=== PATIENT | female | born 1940 | race Caucasian/White ===

== ENCOUNTER 2020-02-04 14:57 | Inpatient (IN) | payer MEDICARE ==
[~2020-02-04] VITALS: Ht 160 cm; Wt 49.0 kg
[~2020-02-04 14:57] MED LIST: ADVIL200 MG PO; ASPIRIN81 MG PO; DULCOLAX10 MG/SUPP RC; LOVENOX40 MG/0.4 SQ; MIRALAX17 GM PO; OGEN1.5 MG PO; PLAVIX75 MG PO; PRAVACHOL20 MG PO; SALINE FLUSH10 ML IV; SENOKOT-S TABLE1 TAB PO; VITAMIN B-121000 MC3 PO; VITAMIN D31000 UNIT PO; XALATAN 0.0052.5 ML EACH EYE
[2020-02-04] MEDS ORDERED: LISINOPRIL2.5 MG PO (15:08)
[2020-02-04] MEDS ORDERED: PLAVIX75 MG PO (15:08)
[2020-02-04] MEDS ORDERED: CELEXA20 MG PO (15:09)
[2020-02-04] MEDS ORDERED: LIPITOR10 MG PO (15:09)
[2020-02-04 16:31] LABS: APTT 25.7 SECONDS (22.8-39.4); INR 1.14 (0.85-1.17); PROTIME 14.5 SECONDS (11.6-15.0)
[2020-02-04 16:33] LABS: D-DIMER-QUANTITATIVE 2.89 ug/mLFEU (0.20-0.54)
[2020-02-04 16:35] LABS: HEMATOCRIT 32.8 % (36.0-48.0); HEMOGLOBIN 9.7 g/dL (12-16); MCH 24.2 pg (26.0-34.0); MCHC 29.6 g/dL (31.0-37.0); MCV 81.8 fL (80.0-100.0); MEAN PLATELET VOLUME 8.9 fL (7.4-10.4); PLATELET COUNT 424 10x3/uL (130-400); RBC 4.01 10x6/uL (4.00-5.40); RDW 15.2 % (11.5-14.5); WBC 24.7 10x3/uL (4.8-10.8)
[2020-02-04 16:43] LABS: CALC OSMOLALITY 274 mosm/kg (275-300); CALCIUM 9.6 mg/dL (8.5-10.1); CARBON DIOXIDE 26.4 mmol/L (21.0-32.0); CHLORIDE - SERUM 99 mmol/L (98-107); CREATININE - SERUM 0.8 mg/dL (0.6-1.3); POTASSIUM - SERUM 3.4 mmol/L (3.5-5.1); SODIUM 134 mmol/L (136-145); UREA NITROGEN 18 mg/dL (7-18); eGFR NON AFRICAN AMERICAN 73 mL/min (90-120)
[2020-02-04 16:45] LABS: GLUCOSE 180 mg/dL (74-106)
--- NOTE | 2020-02-04 16:47 | NUR ---
elevated d-dimer of 2.89. reported to provider
[2020-02-04 17:15] LABS: ALBUMIN 2.2 g/dL (3.4-5.0); ALKALINE PHOSPHATASE 97 U/L (30-120); ALT (SGPT) 15 U/L (10-68); CKMB 0.3 U/L (0.0-3.6); CREATINE KINASE 24 UL (21-215); PRO BNP 401 pg/mL (0-450); PROTEIN - SERUM 6.7 g/dL (6.4-8.2)
[2020-02-04 17:23] LABS: EOSINOPHILS 3 % (0-7); LYMPHOCYTES 6 % (15-50); MONOCYTES 1 % (2-11); NEUTROPHILS 90 % (40-80); PLATELET ESTIMATE NORMAL
[2020-02-04 17:24] LABS: TROPONIN-I < 0.017 ng/mL (0.000-0.060)
[2020-02-04 19:45] VITALS: BP 117/57
--- NOTE | 2020-02-04 19:45 | NUR ---
MARTA JAQUEZ VERBAL ORDER TO DISCONTINUE AZITHROMYCIN. START VANCOMYCIN INSTEAD. PT DENIES CURRENT NEEDS. NO SIGNS DISTRESS NOTED. WILL CONTINUE TO MONITOR.
--- NOTE | 2020-02-04 20:21 | NUR ---
PT LAYING SUPINE POSITION. RESPIRATIONS APPEAR EVEN AND UNLABORED. PT DENIES NEEDS AT THIS TIME. DRINKING WATER AT THIS TIME WITH NO DIFFICULTY NOTED. WILL CONTINUE TO MONITOR.
[2020-02-04 20:30] VITALS: BP 127/60
[2020-02-04 21:00] VITALS: BP 144/57; BP 150/70
[2020-02-04 21:30] VITALS: BP 150/70
--- NOTE | 2020-02-04 21:35 | NUR ---
PT HAD INCONTINENT EPISODE IN BED, VOIDED X1 IN BEDSIDE COMMODE. PERINEAL CARE AND LINEN CHANGE PROVIDED. JELLO AND WATER PROVIDED BY REQUEST.
[2020-02-04 22:42] LABS: BILIRUBIN NEGATIVE (NEGATIVE); GLUCOSE NEGATIVE (NEGATIVE); KETONE NEGATIVE (NEGATIVE); NITRITE NEGATIVE (NEGATIVE); UROBILINOGEN NORMAL (NORMAL)
[2020-02-04 22:43] LABS: RED CELLS - URINE OCC /hpf (0-5); WHITE CELLS - URINE 0-5 /hpf (NEGATIVE)
[2020-02-04 22:44] LABS: BACTERIA MODERATE /hpf (NEGATIVE); EPITHELIAL CELLS OCC /hpf (0-5)
[2020-02-04 23:41] VITALS: BP 138/53; BMI 19.1
[2020-02-05] VITALS: BP 144/79
[2020-02-05 04:00] VITALS: BP 151/68
[2020-02-05 05:22] LABS: BASOPHILS 0.1 % (0-2); EOSINOPHILS 0.7 % (0-7); HEMATOCRIT 31.2 % (36.0-48.0); HEMOGLOBIN 9.2 g/dL (12-16); IMMATURE GRANULOCYTES 0.3 % (0-5); LYMPHOCYTES 18.1 % (15-50); MCH 23.9 pg (26.0-34.0); MCHC 29.5 g/dL (31.0-37.0); MEAN PLATELET VOLUME 8.8 fL (7.4-10.4); MONOCYTES 5.9 % (2-11); NEUTROPHILS 74.9 % (40-80); PLATELET COUNT 365 10x3/uL (130-400); RBC 3.85 10x6/uL (4.00-5.40); RDW 15.3 % (11.5-14.5)
[2020-02-05 05:37] LABS: WBC 11.6 10x3/uL (4.8-10.8)
[2020-02-05 06:01] LABS: % SATURATION 14 % (15-55); IRON 20 ug/dl (35-150); TOTAL IRON BIND CAPACITY 134 ug/dl (260-445); UNSAT IRON BIND CAPACITY 114 ug/dl (150-375)
[2020-02-05 06:14] LABS: ALKALINE PHOSPHATASE 86 U/L (30-120); ALT (SGPT) 15 U/L (10-68); BILIRUBIN - TOTAL 0.57 mg/dL (0.2-1.3); C-REACTIVE PROTEIN 7.7 mg/dL (0.0-0.9); CALC OSMOLALITY 272 mosm/kg (275-300); CALCIUM 8.9 mg/dL (8.5-10.1); CARBON DIOXIDE 27.7 mmol/L (21.0-32.0); CHLORIDE - SERUM 102 mmol/L (98-107); CREATININE - SERUM 0.7 mg/dL (0.6-1.3); FERRITIN 335 ng/mL (3-244); GLUCOSE 94 mg/dL (74-106); MAGNESIUM - SERUM 1.9 mg/dL (1.8-2.4); PHOSPHOROUS 2.8 mg/dL (2.5-4.9); POTASSIUM - SERUM 3.2 mmol/L (3.5-5.1); PROTEIN - SERUM 5.7 g/dL (6.4-8.2); SODIUM 137 mmol/L (136-145); UREA NITROGEN 10 mg/dL (7-18); eGFR NON AFRICAN AMERICAN 85 mL/min (90-120)
--- NOTE | 2020-02-05 08:11 | NUR ---
SHE IS WANTING TO SEE HER . WEARING O2 AT 2 LITERS NC. SHE IS NOT CONFUSED AT THIS PRESENT TIME. THE CALL LIGHT IS WITHIN REACH, AND HER PHONE. DENIES ANY NEEDS.
[2020-02-05 08:54] VITALS: BP 165/81
[2020-02-05 09:47] VITALS: Ht 160 cm; Wt 49.0 kg
[2020-02-05 12:32] VITALS: BP 133/65
--- NOTE | 2020-02-05 13:00 | NUR ---
STARTED NEW IV TO THE RIGHT UPPER ARM 22 G.
[2020-02-05 16:16] VITALS: BP 133/64
--- NOTE | 2020-02-05 17:13 | NUR ---
THE TB SKIN TEST WAS DONE IN THE INNER LEFT ARM. SHE IS NOT HAVING ANY SOB. O2 SAT 99% & 100% ON 2 LITERS NC.
--- NOTE | 2020-02-06 03:42 | NUR ---
RESTING IN BED WITH NO NEEDS STATED OR NOTED. SHE IS ALERT AND ORENTED ABLE TO VOICE NEEDS AND WANT STO STAFF. IV IN PLACE AND PATEN TO RIGHT FA. WITH NS AT 50 ML/HR. O2 VIA N/C AT 2L/M. REMAINS ON ISOLATION.
[2020-02-06 06:21] LABS: HEMATOCRIT 30.8 % (36.0-48.0); HEMOGLOBIN 9.1 g/dL (12-16); MCH 24.1 pg (26.0-34.0); MCHC 29.5 g/dL (31.0-37.0); MCV 81.5 fL (80.0-100.0); MEAN PLATELET VOLUME 8.8 fL (7.4-10.4); PLATELET COUNT 337 10x3/uL (130-400); RBC 3.78 10x6/uL (4.00-5.40); RDW 15.4 % (11.5-14.5); WBC 9.3 10x3/uL (4.8-10.8)
[2020-02-06 06:34] LABS: ALKALINE PHOSPHATASE 87 U/L (30-120); ALT (SGPT) 18 U/L (10-68); BILIRUBIN - TOTAL 0.57 mg/dL (0.2-1.3); CALC OSMOLALITY 274 mosm/kg (275-300); CARBON DIOXIDE 29.2 mmol/L (21.0-32.0); CHLORIDE - SERUM 104 mmol/L (98-107); CREATININE - SERUM 0.6 mg/dL (0.6-1.3); GLUCOSE 114 mg/dL (74-106); PHOSPHOROUS 3.2 mg/dL (2.5-4.9); PROTEIN - SERUM 5.8 g/dL (6.4-8.2); SODIUM 138 mmol/L (136-145); UREA NITROGEN 8 mg/dL (7-18); eGFR NON AFRICAN AMERICAN > 90 mL/min (90-120)
--- NOTE | 2020-02-06 08:38 | NUR ---
AWAKE FOR MEDICATIONS, 02 AT 2 LITERS NC. NO SOB, COUGHING UP SOME SMALL AMOUNT OF BLOOD.
[2020-02-06 08:40] VITALS: BP 152/87
[2020-02-06 09:19] LABS: ANISOCYTOSIS OCC; LYMPHOCYTES 17 % (15-50); MONOCYTES 7 % (2-11); NEUTROPHILS 75 % (40-80); PLATELET ESTIMATE NORMAL; POLYCHROMASIA OCC
--- NOTE | 2020-02-06 12:30 | NUR ---
COLLECTED URINE AND SPUTUM, SENT TO LAB. SHE SAT IN A CHAIR FOR A FEW MINUTES.
[2020-02-06 12:41] VITALS: BP 139/69
[2020-02-06 16:13] VITALS: BP 135/70
[2020-02-07] VITALS: BP 138/65
--- NOTE | 2020-02-07 02:05 | NUR ---
REC'D. CHGE OF SHIFT WALKING ROUNDS WITH DROPLET PRECAUTIONS ISOLATION IN PROGRESS.IN BED SUPINE POSITION. EYES CLOSED RESP DEEP AND EVEN.02 2L NC. NO RESP DISTRESS OBSERVED. WILL CONTINUE TO MONITOR FOR ANY CHGES AND FOLLOW CURRENT PLAN OF CARE.
--- NOTE | 2020-02-07 03:40 | NUR ---
I have reviewed this patient and I concur with the Shift Assessment completed by the Licensed Practical Nurse today this shift.
[2020-02-07 06:34] LABS: ALBUMIN 2.1 g/dL (3.4-5.0); ALKALINE PHOSPHATASE 99 U/L (30-120); ALT (SGPT) 15 U/L (10-68); BILIRUBIN - TOTAL 0.53 mg/dL (0.2-1.3); CALC OSMOLALITY 266 mosm/kg (275-300); CALCIUM 9.2 mg/dL (8.5-10.1); CARBON DIOXIDE 30.1 mmol/L (21.0-32.0); CHLORIDE - SERUM 98 mmol/L (98-107); CREATININE - SERUM 0.6 mg/dL (0.6-1.3); GLUCOSE 101 mg/dL (74-106); MAGNESIUM - SERUM 1.9 mg/dL (1.8-2.4); PHOSPHOROUS 3.2 mg/dL (2.5-4.9); POTASSIUM - SERUM 3.4 mmol/L (3.5-5.1); PROTEIN - SERUM 6.7 g/dL (6.4-8.2); SODIUM 135 mmol/L (136-145); eGFR NON AFRICAN AMERICAN > 90 mL/min (90-120)
[2020-02-07 06:43] LABS: UREA NITROGEN 5 mg/dL (7-18)
[2020-02-07 08:01] LABS: BASOPHILS 0.2 % (0-2); EOSINOPHILS 0.7 % (0-7); HEMATOCRIT 33.5 % (36.0-48.0); HEMOGLOBIN 9.8 g/dL (12-16); IMMATURE GRANULOCYTES 0.2 % (0-5); LYMPHOCYTES 20.6 % (15-50); MCH 24.1 pg (26.0-34.0); MCHC 29.3 g/dL (31.0-37.0); MCV 82.3 fL (80.0-100.0); MEAN PLATELET VOLUME 8.9 fL (7.4-10.4); MONOCYTES 6.6 % (2-11); NEUTROPHILS 71.7 % (40-80); PLATELET COUNT 387 10x3/uL (130-400); RBC 4.07 10x6/uL (4.00-5.40); RDW 15.6 % (11.5-14.5)
[2020-02-07 08:15] LABS: WBC 12.5 10x3/uL (4.8-10.8)
--- NOTE | 2020-02-07 09:00 | NUR ---
PATIENT ALERT AND ORIENTED X4. GENERALIZED WEAKNESS NOTED TO BUE AND BLE. SBA WHEN TRANSFERING TO BSC. BERATH SOUNDS DIMINISHED X4 ANTERIOR WITH DYSPNEA W/O EXERTION. O2 2L N/C WITH PULSE OX 100%. ABDOMEN SOFT WITH BOWEL SOUNDS NOTED X4. NO PERIPHERAL EDEMA AND ENCOURAGED TO USE CALL LIGHT FOR ASSIST.
--- NOTE | 2020-02-07 09:44 | NUR ---
NUTRITION F/U CHART REVIEWED, PT REMAINS IN ISOLATION. INTAKE RECORDS SHOW PT CONSUMING 50 TO 100% OF RECENT MEALS. ALSO HAS ENSURE WITH MEALS. WILL CONTINUE TO PROVIDE FULL LIQUID DIET/ENSURE. MONITOR PO INTAKE AND DIET ADVANCEMENT. RD FOLLOWING
[2020-02-07 13:09] LABS: ACID FAST SMEAR Negative (()); AFB SPECIMEN PROCESSING Concentration (())
--- NOTE | 2020-02-07 18:40 | NUR ---
ASSISTED UP WITH SBA TO BSC. PRODUCTIBVE COUGH NTED WITH BLOOD TINGED SPUTUM. IV INTACT
[2020-02-07 20:00] VITALS: BP 143/66
--- NOTE | 2020-02-07 21:09 | NUR ---
ALERT,ORIENTED.NO COMPALITNS VOICED. NO DISTRESS NOTED.02@ 2L PER NC ON. RESP UNLABORED. NS INFUSING TO RFA WITHOUT REDNESS OR EDEMA NOTED. PATIENT IN DROPLET ISOL.CL IN REACH
[2020-02-08] VITALS: BP 159/79
--- NOTE | 2020-02-08 02:18 | NUR ---
I have reviewed this patient and I concur with the Shift Assessment completed by the Licensed Practical Nurse today this shift.
[2020-02-08 04:00] VITALS: BP 152/72
[2020-02-08 06:24] LABS: BASOPHILS 0.2 % (0-2); HEMATOCRIT 31.1 % (36.0-48.0); HEMOGLOBIN 9.1 g/dL (12-16); IMMATURE GRANULOCYTES 0.2 % (0-5); LYMPHOCYTES 18.8 % (15-50); MCH 24.3 pg (26.0-34.0); MCHC 29.3 g/dL (31.0-37.0); MCV 82.9 fL (80.0-100.0); MEAN PLATELET VOLUME 8.8 fL (7.4-10.4); MONOCYTES 8.1 % (2-11); NEUTROPHILS 71.7 % (40-80); PLATELET COUNT 319 10x3/uL (130-400); RBC 3.75 10x6/uL (4.00-5.40); RDW 15.5 % (11.5-14.5)
[2020-02-08 06:37] LABS: WBC 9.3 10x3/uL (4.8-10.8)
[2020-02-08 06:51] LABS: ALBUMIN 1.9 g/dL (3.4-5.0); ALKALINE PHOSPHATASE 90 U/L (30-120); ALT (SGPT) 16 U/L (10-68); BILIRUBIN - TOTAL 0.51 mg/dL (0.2-1.3); CALC OSMOLALITY 271 mosm/kg (275-300); CALCIUM 9.3 mg/dL (8.5-10.1); CARBON DIOXIDE 30.5 mmol/L (21.0-32.0); CHLORIDE - SERUM 101 mmol/L (98-107); CREATININE - SERUM 0.6 mg/dL (0.6-1.3); GLUCOSE 118 mg/dL (74-106); MAGNESIUM - SERUM 2.2 mg/dL (1.8-2.4); PHOSPHOROUS 3.3 mg/dL (2.5-4.9); POTASSIUM - SERUM 3.6 mmol/L (3.5-5.1); PROTEIN - SERUM 6.2 g/dL (6.4-8.2); SODIUM 137 mmol/L (136-145); UREA NITROGEN 5 mg/dL (7-18); eGFR NON AFRICAN AMERICAN > 90 mL/min (90-120)
[2020-02-08 07:38] VITALS: BP 129/75
--- NOTE | 2020-02-08 07:44 | NUR ---
PATIENT UP TO BSC WITH SBA. HAD LARGE SEMIFORMED BROWN BM. ABDOMEN SOFT WITH BOWEL SOUNDS NOTED. LUNGS DIMINISHED BUT CTA. NO PERIPHERAL EDEMA NOTED. STATES FEELS LIKE IS BREATHING BETTER. HRRR AND DENIES ANY CHEST PAIN OR DISCOMFORT.ENCOURAGED TO USE CALL LIGHT FOR ASSSIT.
--- NOTE | 2020-02-08 11:39 | MORECARE ---
CASE MANAGEMENT DISCHARGE SUMMARY PATIENT: ERICA ALBERTO UNIT: [id number] ADM DATE: 02/04/20 AGE: 79 : 40 SEX: F ROOM/BED: D.2201 AUTHOR: NGUYEN MOREAU PHYSICIAN: REFERRING PHYSICIAN: REFUGIO FABIAN MD DATE OF SERVICE: 02/08/20 Discharge Plan Patient Name: ERICA ALBERTO Facility: [facility]:[place] : 1940 Planned Disposition: Home Anticipated Discharge Date: Discharge Date: Expected LOS: Initial Reviewer: [email or web address] Initial Review Date: 02/04/2020 Generated: 02/08/20 12:39 pm Patient Name: ERICA ALBERTO Page 26607 at 1139 All edits/amendments must be made on the electronic document DICTATION DATE: 02/08/20 113 GEAR REPAIRER: MIGUEL ANGEL 02/08/20 1139 RPT#: [id number] DC DATE: STATUS: ADM IN [facility] [address] [place] [address] END OF REPORT
--- NOTE | 2020-02-08 11:46 | MORECARE ---
CASE MANAGEMENT DISCHARGE SUMMARY PATIENT: ERICA ALBERTO UNIT: [id number] ADM DATE: 02/04/20 AGE: 79 : 40 SEX: F ROOM/BED: D.2201 AUTHOR: NGUYEN MOREAU PHYSICIAN: REFERRING PHYSICIAN: REFUGIO FABIAN MD DATE OF SERVICE: 02/08/20 Discharge Plan Patient Name: ERICA ALBERTO Facility: [facility]:[place] : 1940 Planned Disposition: Home Anticipated Discharge Date: Discharge Date: Expected LOS: Initial Reviewer: [email or web address] Initial Review Date: 02/04/2020 Generated: 02/08/20 12:46 pm Last DP export: 02/08/20 10:39 a Patient Name: ERICA ALBERTO Page 76378 at 1146 All edits/amendments must be made on the electronic document DICTATION DATE: 02/08/20 1146 EXTERNAL GRINDER: DM 02/08/20 1146 RPT#: [id number] DC DATE: STATUS: ADM IN [facility] [address] [place] [address] END OF REPORT
--- NOTE | 2020-02-08 11:53 | MORECARE ---
CASE MANAGEMENT DISCHARGE SUMMARY PATIENT: ERICA ALBERTO UNIT: [id number] ADM DATE: 02/04/20 AGE: 79 : 40 SEX: F ROOM/BED: D.2201 AUTHOR: NGUYEN MOREAU PHYSICIAN: REFERRING PHYSICIAN: REFUGIO FABIAN MD DATE OF SERVICE: 02/08/20 Discharge Plan Patient Name: ERICA ALBERTO Facility: [facility]:[place] : 1940 Planned Disposition: Home Anticipated Discharge Date: Discharge Date: Expected LOS: Initial Reviewer: [email or web address] Initial Review Date: 02/04/2020 Generated: 02/08/20 12:52 pm DCPIA - Discharge Planning Initial Assessment Updated by [email or web address]: Julia Reyes on 02/08/20 11:47 am * Is the patient Alert and Oriented? Yes * How many steps to enter\exit or inside your home? NONE * PCP DR BILLY * Pharmacy [facility] ON [address] * Preadmission Environment Home with Family * ADLs Partial Dependent * Partial ADLs (Assistance needed) Transfers * Equipment Cane * Other Equipment DENIES ANY ADDITIONAL DME * List name and contact numbers for known caregivers / representatives who currently or will assist patient after discharge: JOSÉ LUIS ALBERTO- SPOUSE- [phone] * Community resources currently utilized None * Please name any agencies selected above. STATES THE PATIENT HAS A NURSE FROM [facility] WHO SEES HER. * Additional services required to return to the preadmission environment? Yes * Can the patient safely return to the preadmission environment? Yes * Has this patient been hospitalized within the prior 30 days at any hospital? No Last DP export: 02/08/20 10:46 a Patient Name: ERICA ALBERTO Page 86525 at 1153 All edits/amendments must be made on the electronic document DICTATION DATE: 02/08/20 1152 WASTE TRANSPORTATION TECHNICIAN: MIGUEL ANGEL 02/08/20 1152 RPT#: [id number] DC DATE: STATUS: ADM IN [facility] [address] [place] [address] END OF REPORT
--- NOTE | 2020-02-08 11:59 | MORECARE ---
CASE MANAGEMENT DISCHARGE SUMMARY PATIENT: ERICA ALBERTO UNIT: [id number] ADM DATE: 02/04/20 AGE: 79 : 40 SEX: F ROOM/BED: D.2201 AUTHOR: NGUYEN MOREAU PHYSICIAN: REFERRING PHYSICIAN: REFUGIO FABIAN MD DATE OF SERVICE: 02/08/20 Discharge Plan Patient Name: ERICA ALBERTO Facility: [facility]:[place] : 1940 Planned Disposition: Home Anticipated Discharge Date: Discharge Date: Expected LOS: Initial Reviewer: [email or web address] Initial Review Date: 02/04/2020 Generated: 02/08/20 12:59 pm Comments DCP- Discharge Planning Updated by [email or web address]: Julia Reyes on 02/08/20 10:[address] CM SPOKE WITH THE PRIMARY NURSE, BRAD. THE PATIENT IS WEAK AND SHORT OF BREATH AT REST. HE IS EXPECTING HER TO VISIT TODAY. TC TO SPEAK WITH THE PATIENT. NO ANSWER TO HER ROOM NUMBER. HER ANSWERED HER CONTACT PHONE NUMBER. HE IS PLANNING TO VISIT TODAY. PCP- DR BILLY [facility] [address]- [place] ONLY [facility] NURSE FOLLOWS THE PATIENT. THE SPOUSE STATES HE IS NOT CERTAIN WHAT CARE SHE MAY NEED AT DISCHARGE. HE FEELS IT IS TOO EARLY TO TELL. HE STATES SHE HAD DECLINED EVEN PRIOR TO ADMISSION. BRIEFLY DISCUSSED SKILLED AND REHAB CARE. ADVISED CM IS VAVAILABLE DAILY TO ASSIST WITH DISCHARGE PLANNING. CM TO FOLLOW. DCPIA - Discharge Planning Initial Assessment Updated by [email or web address]: Julia Reyes on 02/08/20 11:47 am * Is the patient Alert and Oriented? Yes * How many steps to enter\exit or inside your home? NONE * PCP DR BILLY * Pharmacy [facility] [address] * Preadmission Environment Home with Family * ADLs Partial Dependent * Partial ADLs (Assistance needed) Transfers * Equipment Cane * Other Equipment DENIES ANY ADDITIONAL DME * List name and contact numbers for known caregivers / representatives who currently or will assist patient after discharge: JOSÉ LUIS ALBERTO- SPOUSE- [phone] * Community resources currently utilized None * Please name any agencies selected above. STATES THE PATIENT HAS A NURSE FROM [facility] WHO SEES HER. * Additional services required to return to the preadmission environment? Yes * Can the patient safely return to the preadmission environment? Yes * Has this patient been hospitalized within the prior 30 days at any hospital? No Last DP export: 02/08/20 10:53 a Patient Name: ERICA ALBERTO Page 67540 at 1159 All edits/amendments must be made on the electronic document DICTATION DATE: 02/08/20 115 GARMENT STEAMER: DM 02/08/20 1159 RPT#: [id number] DC DATE: STATUS: ADM IN [facility] [address] [place] [address] END OF REPORT
[2020-02-08 15:52] VITALS: BP 137/72
--- NOTE | 2020-02-08 20:30 | NUR ---
LYING QUEITLY WITH NO DISTRESS NOTED. IV TO RIGHT WRIST INTACT WITHOUT REDNESS OR EDEMA NOTED. O2 @ 2L PER NC ON. RESP UNALBORED. CL IN REACH. BED ALARM ON.
[2020-02-08 21:48] VITALS: BP 157/76
--- NOTE | 2020-02-09 03:00 | NUR ---
I have reviewed this patient and I concur with the Shift Assessment completed by the Licensed Practical Nurse today this shift.
[2020-02-09 04:46] LABS: BASOPHILS 0.1 % (0-2); EOSINOPHILS 1.4 % (0-7); HEMATOCRIT 30.1 % (36.0-48.0); HEMOGLOBIN 8.7 g/dL (12-16); IMMATURE GRANULOCYTES 0.2 % (0-5); LYMPHOCYTES 14.6 % (15-50); MCHC 28.9 g/dL (31.0-37.0); MCV 82.9 fL (80.0-100.0); MEAN PLATELET VOLUME 8.7 fL (7.4-10.4); MONOCYTES 9.6 % (2-11); NEUTROPHILS 74.1 % (40-80); PLATELET COUNT 279 10x3/uL (130-400); RBC 3.63 10x6/uL (4.00-5.40); RDW 15.7 % (11.5-14.5); WBC 8.7 10x3/uL (4.8-10.8)
[2020-02-09 04:57] LABS: ALBUMIN 1.7 g/dL (3.4-5.0); ALKALINE PHOSPHATASE 87 U/L (30-120); ALT (SGPT) 19 U/L (10-68); BILIRUBIN - TOTAL 0.43 mg/dL (0.2-1.3); CALC OSMOLALITY 274 mosm/kg (275-300); CALCIUM 9.3 mg/dL (8.5-10.1); CARBON DIOXIDE 31.9 mmol/L (21.0-32.0); CHLORIDE - SERUM 104 mmol/L (98-107); CREATININE - SERUM 0.6 mg/dL (0.6-1.3); GLUCOSE 97 mg/dL (74-106); MAGNESIUM - SERUM 2.2 mg/dL (1.8-2.4); PHOSPHOROUS 3.7 mg/dL (2.5-4.9); POTASSIUM - SERUM 3.3 mmol/L (3.5-5.1); PROTEIN - SERUM 5.9 g/dL (6.4-8.2); SODIUM 139 mmol/L (136-145); UREA NITROGEN 3 mg/dL (7-18); eGFR NON AFRICAN AMERICAN > 90 mL/min (90-120)
[2020-02-09 05:52] VITALS: BP 154/75
[2020-02-09 09:00] VITALS: BP 140/76
[2020-02-09 11:13] VITALS: BP 147/68
[2020-02-09 16:00] VITALS: BP 146/75
[2020-02-09 19:53] VITALS: BP 149/58
--- NOTE | 2020-02-09 20:03 | NUR ---
AWAKE,ALERT.NO COMPLAITNS VOICED AT THIS TIME. RESP EVEN AND UNALBORED. NO DISTRESS NOTED. IV TO RFA INTACT WITHOUT REDNESS OR EDEMA NOTED. CL IN REACH
[2020-02-10] VITALS (8 sets, daily range): BP systolic 112–156; BP diastolic 60–80
--- NOTE | 2020-02-10 01:47 | NUR ---
I have reviewed this patient and I concur with the Shift Assessment completed by the Licensed Practical Nurse today this shift.
[2020-02-10 04:31] LABS: BASOPHILS 0.2 % (0-2); EOSINOPHILS 0.8 % (0-7); HEMATOCRIT 29.9 % (36.0-48.0); HEMOGLOBIN 8.7 g/dL (12-16); IMMATURE GRANULOCYTES 0.3 % (0-5); LYMPHOCYTES 17.7 % (15-50); MCH 24.1 pg (26.0-34.0); MCHC 29.1 g/dL (31.0-37.0); MCV 82.8 fL (80.0-100.0); MEAN PLATELET VOLUME 8.8 fL (7.4-10.4); MONOCYTES 8.7 % (2-11); NEUTROPHILS 72.3 % (40-80); PLATELET COUNT 327 10x3/uL (130-400); RBC 3.61 10x6/uL (4.00-5.40); RDW 15.7 % (11.5-14.5)
[2020-02-10 04:47] LABS: WBC 10.9 10x3/uL (4.8-10.8)
[2020-02-10 04:57] LABS: ALBUMIN 1.9 g/dL (3.4-5.0); ALKALINE PHOSPHATASE 98 U/L (30-120); ALT (SGPT) 16 U/L (10-68); BILIRUBIN - TOTAL 0.34 mg/dL (0.2-1.3); CALC OSMOLALITY 272 mosm/kg (275-300); CALCIUM 9.1 mg/dL (8.5-10.1); CARBON DIOXIDE 33.2 mmol/L (21.0-32.0); CHLORIDE - SERUM 101 mmol/L (98-107); CREATININE - SERUM 0.6 mg/dL (0.6-1.3); GLUCOSE 96 mg/dL (74-106); POTASSIUM - SERUM 3.3 mmol/L (3.5-5.1); PROTEIN - SERUM 6.2 g/dL (6.4-8.2); SODIUM 138 mmol/L (136-145); UREA NITROGEN 3 mg/dL (7-18); VANCOMYCIN - TROUGH 13.8 ug/mL (10.0-20.0); eGFR NON AFRICAN AMERICAN > 90 mL/min (90-120)
--- NOTE | 2020-02-10 10:28 | NUR ---
Nutrition follow-up: Diet: Full liquids with Ensure TID PO intake ~40% average of last 9 meals Labs reviewed Wt: 108# +BM Pt for possible LL lobectomy soon. Will continue to provide food choices and honor food preferences within diet restrictions. RDN following.
--- NOTE | 2020-02-10 21:00 | NUR ---
A&O X 4. VS STABLE. BREATHING SHALLOW AND LABORED AFTER SPEAKING AND AFTER TAKING MEDS. LUNG SOUNDS DIMINSIHED BILATERALLY. TEMP MILDLY ELEVATED, A/C ADJUSTED. HEAVY BLANKETS REMOVED AND PO COLD LIQUIDS GIVEN. STANDBY ASSIST TO BSC. PT VOIDED IN BRIEF. BRIEF CHANGED AND BED PADS CHANGED. DENIES PAIN, NO NEEDS VOICED AT THIS TIME.
--- NOTE | 2020-02-10 22:21 | NUR ---
I have reviewed this patient and I concur with the Shift Assessment completed by the Licensed Practical Nurse today this shift.
[2020-02-11 04:25] LABS: HEMATOCRIT 30.3 % (36.0-48.0); HEMOGLOBIN 8.9 g/dL (12-16); LYMPHOCYTES 13.9 % (15-50); MCHC 29.4 g/dL (31.0-37.0); MCV 81.7 fL (80.0-100.0); MEAN PLATELET VOLUME 8.3 fL (7.4-10.4); PLATELET COUNT 363 10x3/uL (130-400); RBC 3.71 10x6/uL (4.00-5.40); RDW 15.3 % (11.5-14.5); WBC 10.7 10x3/uL (4.8-10.8)
[2020-02-11 04:56] LABS: ALBUMIN 1.9 g/dL (3.4-5.0); ALKALINE PHOSPHATASE 101 U/L (30-120); ALT (SGPT) 20 U/L (10-68); BILIRUBIN - TOTAL 0.49 mg/dL (0.2-1.3); CALC OSMOLALITY 273 mosm/kg (275-300); CALCIUM 9.8 mg/dL (8.5-10.1); CARBON DIOXIDE 32.3 mmol/L (21.0-32.0); CHLORIDE - SERUM 102 mmol/L (98-107); CREATININE - SERUM 0.7 mg/dL (0.6-1.3); GLUCOSE 109 mg/dL (74-106); POTASSIUM - SERUM 3.3 mmol/L (3.5-5.1); PROTEIN - SERUM 6.2 g/dL (6.4-8.2); SODIUM 138 mmol/L (136-145); eGFR NON AFRICAN AMERICAN 85 mL/min (90-120)
[2020-02-11 05:01] LABS: UREA NITROGEN 4 mg/dL (7-18)
[2020-02-11 05:39] VITALS: BP 139/67
--- NOTE | 2020-02-11 07:42 | NUR ---
REC'D IN ROOM AWAKE AND ALERT. RESP EVEN AND UNLABORED WITH NO DISTRESS NOTED. PT DO GET SLIGHTLY SOB WHEN ASSISTING UP TO BSC. CONTINUE TO COUGH UP BLOODY SPUTUM. DENIES ANY PAIN OR DISCOMFORT AT THIS TIME. ASSESSMENT COMPLETED. NO CHANGE IN POC. C/L IN REACH AT BEDSIDE.
[2020-02-11 08:00] VITALS: BP 156/91
[2020-02-11 10:36] LABS: POTASSIUM - SERUM 4.8 mmol/L (3.5-5.1)
--- NOTE | 2020-02-11 12:32 | NUR ---
IV SITED TO LEFT FOREARM AFTER ONE ATTEMPT WITH 22G. TOLERATED WELL WITHOUT C/O.
[2020-02-11 17:42] VITALS: BP 144/88
--- NOTE | 2020-02-11 18:16 | NUR ---
I have reviewed this patient and I concur with the Shift Assessment completed by the Licensed Practical Nurse today this shift.
[2020-02-11 20:00] VITALS: BP 146/54
--- NOTE | 2020-02-11 20:00 | NUR ---
ALERT RESTING IN BED, DENIES PAIN, AASSISTED TO BSC AND BACK TO BED WITHOUT DIFFICULTY, FALL PRECAUTIONS IN PLACE, MARGE MAT IN USE, SEE SHIFT ASSESSEMENT, CALL LIGHT IN REACH
[2020-02-12 00:45] VITALS: BP 141/71
[2020-02-12 04:00] VITALS: BP 138/63
[2020-02-12 05:12] LABS: ALKALINE PHOSPHATASE 105 U/L (30-120); CALC OSMOLALITY 263 mosm/kg (275-300); CALCIUM 9.4 mg/dL (8.5-10.1); CARBON DIOXIDE 27.8 mmol/L (21.0-32.0); CHLORIDE - SERUM 98 mmol/L (98-107); CREATININE - SERUM 0.6 mg/dL (0.6-1.3); GLUCOSE 110 mg/dL (74-106); PROTEIN - SERUM 6.5 g/dL (6.4-8.2); SODIUM 133 mmol/L (136-145); UREA NITROGEN 4 mg/dL (7-18); eGFR NON AFRICAN AMERICAN > 90 mL/min (90-120)
[2020-02-12 05:14] LABS: ALT (SGPT) 31 U/L (10-68); POTASSIUM - SERUM 3.2 mmol/L (3.5-5.1)
[2020-02-12 05:27] LABS: HEMATOCRIT 30.9 % (36.0-48.0); HEMOGLOBIN 9.1 g/dL (12-16); LYMPHOCYTES 13.3 % (15-50); MCHC 29.4 g/dL (31.0-37.0); MCV 81.5 fL (80.0-100.0); MEAN PLATELET VOLUME 8.3 fL (7.4-10.4); NEUTROPHILS 77.7 % (40-80); PLATELET COUNT 372 10x3/uL (130-400); RBC 3.79 10x6/uL (4.00-5.40); RDW 15.3 % (11.5-14.5)
[2020-02-12 05:42] LABS: WBC 14.6 10x3/uL (4.8-10.8)
--- NOTE | 2020-02-12 06:45 | NUR ---
ALERT AND ORIENTED. NO C/O PAIN. NO S/S OF ACUTE DISTRESS NOTED. UP WITH ASSIST. INCONTINENT OF B&B AT TIMES. ON AIRBORNE PRECAUTIONS. ON 2L O2, NC. IV TO LEFT UPPER ARM, NS INFUSING @ 50ML/HR. SITE PATENT WITHOUT REDNESS OR SWELLING. ON TELEMETRY [address] DENIES ANY NEEDS AT THIS TIME. CALL LIGHT IN REACH. WILL CONTINUE TO MONITOR.
[2020-02-12 08:17] VITALS: BP 135/76
--- NOTE | 2020-02-12 09:44 | NUR ---
ALERT AND ORIENTED. NO C/O PAIN. NO S/S OF ACUTE DISTRESS NOTED. UP WITH ASSIST. INCONTINENT OF B&B AT TIMES. MARGE ALARM ON. ON AIRBORNE PRECAUTIONS. ON 2L O2, NC. IV TO LEFT UPPER ARM, NS INFUSING @ 50ML/HR. SITE PATENT WITHOUT REDNESS OR SWELLING. ON TELEMETRY [address] DENIES ANY NEEDS AT THIS TIME. CALL LIGHT IN REACH. WILL CONTINUE TO MONITOR.
--- NOTE | 2020-02-12 11:55 | NUR ---
I have reviewed this patient and I concur with the Shift Assessment completed by the Licensed Practical Nurse today this shift.
[2020-02-12 13:06] VITALS: BP 148/75
[2020-02-12 15:43] VITALS: BP 142/76
--- NOTE | 2020-02-12 18:39 | NUR ---
ALERT AND ORIENTED. NO C/O PAIN. NO S/S OF ACUTE DISTRESS NOTED. DENIES ANY NEEDS AT THIS TIME. CALL LIGHT IN REACH. WILL CONTINUE TO MONITOR.
--- NOTE | 2020-02-13 01:25 | NUR ---
PT RESTING IN BED. ALERT AND ORIENTED. SHORT OF BREATH. LUNG SOUNDS DIMINISHED. 2LO2 NASAL CANNULA. SPUTUM BLOODY. BOWEL SOUNDS ACTIVE. SKIN CLEAN DRY AND INTACT. PT STATES NO NEEDS AT THIS TIME. IV SITE LT UPPER ARM DRESSING CLEAN DRY AND INTACT. NO SIGNS OF INFECTION. WILL CONTINUE PLAN OF CARE. CALL LIGHT IN REACH. BED LOWERED AND LOCKED. BED RAILS UPX2.
[2020-02-13 01:42] VITALS: BP 140/56
[2020-02-13 04:51] LABS: BASOPHILS 0.1 % (0-2); EOSINOPHILS 0.2 % (0-7); HEMATOCRIT 30.8 % (36.0-48.0); IMMATURE GRANULOCYTES 0.4 % (0-5); LYMPHOCYTES 11.1 % (15-50); MCH 23.9 pg (26.0-34.0); MCHC 29.2 g/dL (31.0-37.0); MCV 81.9 fL (80.0-100.0); MEAN PLATELET VOLUME 8.5 fL (7.4-10.4); MONOCYTES 7.1 % (2-11); NEUTROPHILS 81.1 % (40-80); PLATELET COUNT 368 10x3/uL (130-400); RBC 3.76 10x6/uL (4.00-5.40); RDW 16.4 % (11.5-14.5)
[2020-02-13 05:09] LABS: ALBUMIN 1.9 g/dL (3.4-5.0); ALKALINE PHOSPHATASE 101 U/L (30-120); BILIRUBIN - TOTAL 0.42 mg/dL (0.2-1.3); CALC OSMOLALITY 267 mosm/kg (275-300); CALCIUM 9.6 mg/dL (8.5-10.1); CARBON DIOXIDE 28.8 mmol/L (21.0-32.0); CHLORIDE - SERUM 100 mmol/L (98-107); CREATININE - SERUM 0.6 mg/dL (0.6-1.3); GLUCOSE 112 mg/dL (74-106); POTASSIUM - SERUM 3.2 mmol/L (3.5-5.1); PROTEIN - SERUM 6.4 g/dL (6.4-8.2); SODIUM 135 mmol/L (136-145); UREA NITROGEN 5 mg/dL (7-18); eGFR NON AFRICAN AMERICAN > 90 mL/min (90-120)
[2020-02-13 05:10] LABS: ALT (SGPT) 40 U/L (10-68)
[2020-02-13 06:14] VITALS: BP 120/70
[2020-02-13 06:18] VITALS: BP 139/60
--- NOTE | 2020-02-13 07:43 | NUR ---
PT IS RESTING IN BED WITH EYES OPEN. RESPIRATIONS ARE EVEN AND UNLABORED. PT IS AAO X 4. SLOW TO RESPOND BUT ANSWERS ALL QUESTIONS APPROPRIATLEY. PT WITH PRODUCTIVE FREQUENT COUGH. BLOODY SPUTUM IS NOTED. AIRBORNE PRECAUTIONS IN PLACE AND FOLLOWED. ALL FALL PRECAUTIONS ARE IN PLACE. SCDS AT BEDSIDE. PT REPORTS TENDERNESS TO RUE. REDNESS NOTED TO RUE. PT DENIES PRESENCE OF N/V/DYSPNEA AT THIS TIME. BED IS IN THE LOWEST POSITION. CALL LIGHT AND BEDSIDE TABLE ARE WITHIN REACH. SIDE RAILS X 2. PT DENIES FURTHER NEEDS. WILL CONT TO MONITOR.
[2020-02-13 08:41] VITALS: BP 148/83
[2020-02-13 12:25] VITALS: BP 145/78
[2020-02-13 15:04] LABS: ALBUMIN 1.8 g/dL (3.4-5.0); ALKALINE PHOSPHATASE 101 U/L (30-120); ALT (SGPT) 44 U/L (10-68); BILIRUBIN - TOTAL 0.36 mg/dL (0.2-1.3); CALCIUM 9.3 mg/dL (8.5-10.1); CARBON DIOXIDE 29.3 mmol/L (21.0-32.0); CHLORIDE - SERUM 103 mmol/L (98-107); CREATININE - SERUM 0.7 mg/dL (0.6-1.3); POTASSIUM - SERUM 3.7 mmol/L (3.5-5.1); PROTEIN - SERUM 5.7 g/dL (6.4-8.2); SODIUM 137 mmol/L (136-145); VANCOMYCIN - TROUGH 13.2 ug/mL (10.0-20.0); eGFR NON AFRICAN AMERICAN 85 mL/min (90-120)
[2020-02-13 15:05] LABS: CALC OSMOLALITY 275 mosm/kg (275-300); GLUCOSE 166 mg/dL (74-106); UREA NITROGEN 8 mg/dL (7-18)
[2020-02-13 20:00] VITALS: BP 151/72
[2020-02-14] VITALS (16 sets, daily range): BP systolic 123–165; BP diastolic 46–93
[2020-02-14 04:39] LABS: BASOPHILS 0.1 % (0-2); EOSINOPHILS 0.5 % (0-7); HEMATOCRIT 30.6 % (36.0-48.0); HEMOGLOBIN 8.9 g/dL (12-16); IMMATURE GRANULOCYTES 0.3 % (0-5); LYMPHOCYTES 8.9 % (15-50); MCH 24.2 pg (26.0-34.0); MCHC 29.1 g/dL (31.0-37.0); MCV 83.2 fL (80.0-100.0); MEAN PLATELET VOLUME 8.5 fL (7.4-10.4); MONOCYTES 4.8 % (2-11); NEUTROPHILS 85.4 % (40-80); PLATELET COUNT 349 10x3/uL (130-400); RBC 3.68 10x6/uL (4.00-5.40); RDW 16.7 % (11.5-14.5); WBC 14.5 10x3/uL (4.8-10.8)
[2020-02-14 05:10] LABS: ALBUMIN 1.8 g/dL (3.4-5.0); ALKALINE PHOSPHATASE 99 U/L (30-120); ALT (SGPT) 46 U/L (10-68); CALC OSMOLALITY 268 mosm/kg (275-300); CALCIUM 9.6 mg/dL (8.5-10.1); CARBON DIOXIDE 27.5 mmol/L (21.0-32.0); CHLORIDE - SERUM 101 mmol/L (98-107); CREATININE - SERUM 0.6 mg/dL (0.6-1.3); POTASSIUM - SERUM 3.3 mmol/L (3.5-5.1); PROTEIN - SERUM 6.4 g/dL (6.4-8.2); SODIUM 135 mmol/L (136-145); UREA NITROGEN 6 mg/dL (7-18); eGFR NON AFRICAN AMERICAN > 90 mL/min (90-120)
[2020-02-14 05:15] LABS: GLUCOSE 117 mg/dL (74-106)
--- NOTE | 2020-02-14 06:22 | NUR ---
ASSESSED AT THE BEGINNING OF THE SHIFT. PT REMAINS IN ISOLATION FOR AIRBORNE. SHE IS ALERT AND ORIENTED, ABLE TO VERBALIZE NEEDS. WE ARE ASSISTING HER UP TO THE BEDSIDE COMMODE TO VOID AND SHE HAS DONE THIS ABOUT EVERY HOUR AND A HALF. SHE IS ABLE TO TAKE MEDS ORALLY BUT IS VERY SHORT OF BREATHE WITH ANY EXERTION. WHEN SHE COUGHS UP PHLEGM IT IS BLOODY. SHE STATED THE DOCTOR KNEW ABOUT THE BLOODY PHLEGM, SHE HAS NOT REQUESTED ANY THING FOR PAIN AND CONINUES TO WEAR HER O2 AT 2 LITERS.
--- NOTE | 2020-02-14 08:50 | NUR ---
ALERT AND ORIENTED X4. IV INTACT TO LEFT FOREARM WITH NO S/S OF INFECTION/INFILTRATION. LUNGS DIMINISHED X4 ANTERIOR WITH O2 1 L N/C. NO PERIPHERAL EDEMA NOTED. SHORNTESS OF BREATH W/O EXERTION NOTED. ASSISTED X1 TO BSC. ENCOURAGED TO USE CALL LIGHT FOR ASSIST.
--- NOTE | 2020-02-14 14:18 | NUR ---
Nutrition follow-up: Chart reviewed Diet: low soidum PO intake ~50% average of last 9 meals; po intake has improved a little over the last few days. Wt: 108# Labs reviewed; CRP: 7.7 which indicated inflammation Pt assessed with sesvere malnutrition using GLIM cirteria: Phenotypic 1. BMI: 19.1 Etiologic criteria 1. Inflammation of metastatic lung cancer with CRP elevated at 7.7 2. < 50% intake of estimated energy needs for > 1 week Will continue to provide food choices with selective menus and honor all food preferences. Will provide fortified foods to increase kcal, protein intake. RDN following.
--- NOTE | 2020-02-14 15:00 | NUR ---
PT ASSSITED UP TO BSC X 1. IV RESTARTED TO LEFT F/A WITH 20G. NO S/S OF INFECTION/INFILTRAION. PT REFUSED SHONGE BATH AT THIS TIME. PT SOB W/O EXERTION. FAMILY CALLED REGARDING WANTING PATIENT TO HAVE SHOWER. PT ISN'T PHYSICALL STABLE ENOUGH AT THIS TIME DUE TO RESP AND ENDURANCE.
--- NOTE | 2020-02-14 17:10 | NUR ---
CONSENT SIGNED FOR CHEST TUBE WITH IR HERE FOR PATIENT FOR PLACEMENT. STABLE AT TIME OF DEPARTURE
--- NOTE | 2020-02-14 18:00 | NUR ---
[facility]IENT [facility] W/O SUCTION. NO DRAINAGE AT THIS TIME WITH DRESSING INTACT. PATIENT STABLE AND DENIES ANY PAIN OR DISCOMFORT.
--- NOTE | 2020-02-14 19:05 | NUR ---
PATIENT ALERT AND ORIENTED. ANSWERS QUESTIONS WITH YES OR NO ANSWERS, NOT MUCH DETAIL. DENIES PAIN. HAS CHEST TUBE INSERTED TO THE LEFT UPPER POSTERIOR BACK. DRAIN IS SECURED AND INTACT. CURRENTLY LOCKED AT THIS TIME. PATIENT HAS LEFT 20 G IV THAT IS INFUSING NS @ 50 ML/HR. PATIENT WEARING 2L VIA NASAL CANNULA. BREATH SOUNDS DIMINISHED BILATERALLY. RESPIRATORY RATE IS EVEN AND UNLABORED AT THIS TIME. ABDOMEN IS FLAT UPON ASSESSMENT. BOWEL SOUNDS ACTIVE. SOFT AND NONTENDER TO PALPATION. PATIENT HAND SPEECH/LANGUAGE THERAPIST ARE STRONG AND EQUAL. FOOT PUMPS ARE STRONG AND EQUAL, NO EDMA NOTED IN UPPER OR LOWER EXTREMETIES. PALPABLE PULSES IN THE BRACHIAL AND DORSALIS PEDIS AREAS, BILATERALLY. ASSESSED GAIT. PATIENT IS UNSTEADY ON FEET. REQUIRES STAND BY ASSIST TO THE BEDSIDE COMMODE. FALL PRECAUTIONS ARE IN PLACE, MARGE ALARM, BLUE SOCKS, AND YELLOW BAND. PATIENT AWARE OF LIMITATIONS. RETURNED TO BED SAFELY AFTER VOIDING. AIRBORNE PRECAUTIONS ARE IN PLACE. CALL LIGHT IS IN REACH WELL TISSUES AND GLASSES. SIDE RAILS UP X 2. BED IN LOWEST POSITION. PATIENT DENIES PAIN. PATIENT DENIES NEEDS. CPOC.
--- NOTE | 2020-02-14 19:45 | NUR ---
PATIENT FINISHING DINNER TRAY.
--- NOTE | 2020-02-14 20:30 | NUR ---
ASSISTED PATIENT TO BEDSIDE COMMODE. BED CHANGE AND BED BATH PROVIDED WITH HIBBA CLEANSE FORMULA. ORAL CARE PROVIDED WELL. RETURNED BACK TO BED SAFELY. FALL PRECAUTIONS IN PLACE. CALL LIGHT CLOSE. PATIENT DENIES PAIN. UNLOCKED CHEST TUBE AND BLOODY DRAINAGE BEGAN TO DRAIN. NO SUCTION TO BE APPLIED PER DR. VELAZQUEZ. CPOC.
[2020-02-14 21:22] LABS: EOS BF 1 %; MACROPHAGES BF 10 %; NEUT - BF 78 %
--- NOTE | 2020-02-14 21:22 | NUR ---
ADMINISTERED HS MEDICATIONS. PATIENT TOLERATED WITH NO TROUBLE. DENIES NEEDS. CPOC.
--- NOTE | 2020-02-14 22:10 | NUR ---
SPOKE WITH DR. VELAZQUEZ, VERBAL ORDER TO KEEP CHEST TUBE UNLOCKED TO ALLOW LUNG ABCESS TO DRAIN. DR. VELAZQUEZ REITERATED NO WALL SUCTION.
[2020-02-15] VITALS (7 sets, daily range): BP systolic 128–160; BP diastolic 49–93
--- NOTE | 2020-02-15 04:41 | NUR ---
I have reviewed this patient and I concur with the Shift Assessment completed by the Licensed Practical Nurse today this shift.
--- NOTE | 2020-02-15 05:44 | NUR ---
I have reviewed this patient and I concur with the Shift Assessment completed by the Licensed Practical Nurse today this shift.
--- NOTE | 2020-02-15 08:00 | NUR ---
ALERT AND ORIENTED X3. O2 1L N/C LUNGS DIMINISHED X4 ANTERIOR WITH CEST TUBE DRESSING INTACT TO LUQ POSTERIOR. TELEMETRY INTACT AND DENIES ANY CHEST PAIN OR DISCOMFORT. REFUSES SCD'S THIS MORNING. ASSSISTED UP TO BSC WITH ASSIST X1 WITH INCONT.EPISODES WITH PERICARE DONE. SKIN INTACT AND DENIES ANY PAINOR DISCOMFORT AT THIS TIME. ENCOURAGED TO USE CALL LIGHT FOR ASSIST.
[2020-02-15 09:26] LABS: HEMATOCRIT 29.5 % (36.0-48.0); HEMOGLOBIN 8.5 g/dL (12-16); MCH 24.4 pg (26.0-34.0); MCHC 28.8 g/dL (31.0-37.0); MCV 84.5 fL (80.0-100.0); MEAN PLATELET VOLUME 8.5 fL (7.4-10.4); PLATELET COUNT 304 10x3/uL (130-400); RBC 3.49 10x6/uL (4.00-5.40); RDW 17.3 % (11.5-14.5); WBC 11.2 10x3/uL (4.8-10.8)
[2020-02-15 09:34] LABS: ANION GAP 7.2 mmol/L (8-16); CALCIUM 9.3 mg/dL (8.5-10.1); CARBON DIOXIDE 29.1 mmol/L (21.0-32.0); POTASSIUM - SERUM 3.3 mmol/L (3.5-5.1)
[2020-02-15 09:47] LABS: CREATININE - SERUM 0.8 mg/dL (0.6-1.3)
[2020-02-15 10:11] LABS: LYMPHOCYTES 7 % (15-50); MONOCYTES 2 % (2-11); NEUTROPHILS 91 % (40-80); PLATELET ESTIMATE NORMAL
--- NOTE | 2020-02-15 19:00 | NUR ---
BEDSIDE REPORT RECEIVED. PATIENT ALERT AND ORIENTED. FINISHING DINNER TRAY AT THIS TIME. DENIES PAIN. DENIES NEEDING TO GO TO BATHROOM. DENIES NEEDS. CALL LIGHT IS CLOSE TO PATIENT. FALL PRECAUTIONS IN PLACE. CPOC.
--- NOTE | 2020-02-15 20:30 | NUR ---
ASSESSMENT COMPLETE. PATIENT IV TO THE RIGHT FOREARM INFILTRATED. REMOVED WITH CATH INTACT. ASSISTED PATIENT TO BEDSIDE COMMODE. BED BATH PERFORMED. LINEN CHANGED. PATIENT ASKS TO WAIT PRIOR TO STARTING IV.
--- NOTE | 2020-02-15 21:47 | NUR ---
UNABLE TO RESITE PATIENT IV. 2100 ABX NOT ADMINISTERED AT THIS TIME. WAITING FOR OTHER NURSE TO ATTEMPT.
--- NOTE | 2020-02-15 22:48 | NUR ---
ASSISTED PATIENT TO BEDSIDE COMMODE. RETURNED PATIENT TO BED SAFELY. VOICES NO COMPLAINTS AT THIS TIME. CALL LIGHT IN REACH. CPOC.
--- NOTE | 2020-02-16 03:00 | NUR ---
I have reviewed this patient and I concur with the Shift Assessment completed by the Licensed Practical Nurse today this shift.
[2020-02-16 04:53] VITALS: BP 149/67
[2020-02-16 05:56] LABS: BASOPHILS 0.2 % (0-2); EOSINOPHILS 0.5 % (0-7); HEMATOCRIT 30.7 % (36.0-48.0); HEMOGLOBIN 8.9 g/dL (12-16); IMMATURE GRANULOCYTES 0.5 % (0-5); LYMPHOCYTES 11.3 % (15-50); MCH 24.4 pg (26.0-34.0); MCV 84.1 fL (80.0-100.0); MEAN PLATELET VOLUME 8.7 fL (7.4-10.4); MONOCYTES 4.2 % (2-11); NEUTROPHILS 83.3 % (40-80); PLATELET COUNT 344 10x3/uL (130-400); RBC 3.65 10x6/uL (4.00-5.40); RDW 17.3 % (11.5-14.5)
[2020-02-16 06:02] LABS: WBC 15.4 10x3/uL (4.8-10.8)
[2020-02-16 06:05] LABS: CALC OSMOLALITY 264 mosm/kg (275-300); CALCIUM 10.1 mg/dL (8.5-10.1); CARBON DIOXIDE 28.1 mmol/L (21.0-32.0); CHLORIDE - SERUM 99 mmol/L (98-107); CREATININE - SERUM 0.6 mg/dL (0.6-1.3); POTASSIUM - SERUM 3.6 mmol/L (3.5-5.1); SODIUM 134 mmol/L (136-145); UREA NITROGEN 6 mg/dL (7-18); eGFR NON AFRICAN AMERICAN > 90 mL/min (90-120)
[2020-02-16 06:06] LABS: GLUCOSE 83 mg/dL (74-106)
--- NOTE | 2020-02-16 08:00 | NUR ---
ALERT AND ORIENTED X4. REMAINS ON CONTACT ISOLATION WITH NON PRODUCTIVE COUGH NOTED. REQUIRES SBA TO BSC WITH INCONT. EPISODES OF BOWEL AND BLADDER NOTED WITH BREIFS USED AND PERICARE DONE WITH EACH INCONT. EPISODE. BREATH SOUNDS DIMINISHED X4 ANTERIOR. O2 1L N/C WITH DYSPNEA NOTED W/O EXERTION. NO PERIPHERAL EDEMA NOTED AND DENIES ANY PAIN OR DISCOMFORT. TELEMETRY INTACT AND RESUSES TO WEAR SCD'S. ENCOURAGED TO USE CALL LLIGHT FOR ASSSIT.
[2020-02-16 08:33] VITALS: BP 146/74
[2020-02-16 11:57] VITALS: BP 150/74
[2020-02-16 16:08] LABS: ACID FAST SMEAR Negative (()); AFB SPECIMEN PROCESSING Concentration (())
--- NOTE | 2020-02-16 19:00 | NUR ---
BEDSIDE REPORT RECEIVED AND CARE OT PT ASSUMED. PT LYING IN MID CONSTANTINO'S POSITION WITH EYES CLOSED. IV TO RIGHT FA PATENT WITH NS INFUSING AT 50 ML/HR. TELEMETRY IN USE AND READING [address] AT THIS ASSESSMENT. LEFT CHEST TUBE PATENT DRAINING TO GRAVITY. WILL MONITOR FOR NEEDS.
--- NOTE | 2020-02-16 20:23 | NUR ---
HS MEDICATIONS GIVEN. ASSISTED UP TO USE BEDSIDE TO VOID. URINE BRIGHT ORANGE IN COLOR. WILL CONTINUE TO MONITOR FOR NEEDS.
--- NOTE | 2020-02-16 20:30 | NUR ---
PROVIDED PT WITH ICE WATER AND PACKAGE OF PULLUPS. OFFERED SNACK AND PT DECLINED.
[2020-02-16 20:35] VITALS: BP 157/70
[2020-02-17 03:35] VITALS: BP 157/73
[2020-02-17 04:26] LABS: BASOPHILS 0.2 % (0-2); EOSINOPHILS 0.9 % (0-7); HEMATOCRIT 28.6 % (36.0-48.0); HEMOGLOBIN 8.3 g/dL (12-16); IMMATURE GRANULOCYTES 0.2 % (0-5); LYMPHOCYTES 10.9 % (15-50); MCH 24.3 pg (26.0-34.0); MCV 83.9 fL (80.0-100.0); MEAN PLATELET VOLUME 8.6 fL (7.4-10.4); MONOCYTES 5.8 % (2-11); PLATELET COUNT 327 10x3/uL (130-400); RBC 3.41 10x6/uL (4.00-5.40); RDW 17.4 % (11.5-14.5); WBC 12.8 10x3/uL (4.8-10.8)
[2020-02-17 04:41] LABS: CALCIUM 9.5 mg/dL (8.5-10.1); CARBON DIOXIDE 31.2 mmol/L (21.0-32.0); CHLORIDE - SERUM 99 mmol/L (98-107); CREATININE - SERUM 0.6 mg/dL (0.6-1.3); GLUCOSE 86 mg/dL (74-106); SODIUM 134 mmol/L (136-145); eGFR NON AFRICAN AMERICAN > 90 mL/min (90-120)
[2020-02-17 04:52] LABS: CALC OSMOLALITY 265 mosm/kg (275-300); UREA NITROGEN 9 mg/dL (7-18)
--- NOTE | 2020-02-17 08:38 | NUR ---
PT RESTING QUIETLY IN BED. RESP EVEN AND UNLABORED. O2 @ 1L NC IN PLACE. PT DENIES PAIN AT THIS TIME. VOICES NEEDS TO VOID. ASSISTED PT UP TO BSC AND BACK TO BED. PT DID VOID. IV TO RIGHT FOREARM WITH NS @ 50ML/HR INFUSING VIA PUMP. SITE WITHOUT REDNESS OR EDEMA. CHEST TUBE INTACT TO LEFT CHEST WALL, TUBING WITH BLOOD TINGED DRAINAGE NOTED. DENIES FURTHER NEEDS AT THIS TIME. CL WITHIN REACH. ENCOURGED TO CALL WITH NEEDS. CONTINUE POC
[2020-02-17 08:40] VITALS: BP 154/76
--- NOTE | 2020-02-17 10:30 | NUR ---
PT RESTING QUIETLY IN BED. RESP EVEN AND UNLABORED. DENIES NEEDS AT THIS TIME. CL WITHIN REACH. ENCOURAGED TO CALL WITH NEEDS. CONTINUE POC
--- NOTE | 2020-02-17 12:15 | NUR ---
PT LUNCH TRAY TAKEN INTO ROOM AND SET UP ASSIST FOR PT. RESP EVEN AND UNLABORED. DENIES FURTHER NEEDS AT THIS TIME. CL WITHIN REACH. ENCOURAGED TO CALL WITH NEEDS.
--- NOTE | 2020-02-17 13:22 | MORECARE ---
CASE MANAGEMENT DISCHARGE SUMMARY PATIENT: ERICA ALBERTO UNIT: [id number] ADM DATE: 02/04/20 AGE: 79 : 40 SEX: F ROOM/BED: D.2201 AUTHOR: NGUYEN MOREAU PHYSICIAN: REFERRING PHYSICIAN: REFUGIO FABIAN MD DATE OF SERVICE: 02/17/20 Discharge Plan Patient Name: ERICA ALBERTO Facility: [facility]:[place] : 1940 Planned Disposition: Home Anticipated Discharge Date: Discharge Date: Expected LOS: Initial Reviewer: [email or web address] Initial Review Date: 02/04/2020 Generated: 02/17/20 2:22 pm DCP- Discharge Planning Updated by [email or web address]: Julia Reyes on 02/08/20 10:[address] CM SPOKE WITH THE PRIMARY NURSE, BRAD. THE PATIENT IS WEAK AND SHORT OF BREATH AT REST. HE IS EXPECTING HER TO VISIT TODAY. TC TO SPEAK WITH THE PATIENT. NO ANSWER TO HER ROOM NUMBER. HER ANSWERED HER CONTACT PHONE NUMBER. HE IS PLANNING TO VISIT TODAY. PCP- DR BILLY [facility] [address]- [place] ONLY [facility] NURSE FOLLOWS THE PATIENT. THE SPOUSE STATES HE IS NOT CERTAIN WHAT CARE SHE MAY NEED AT DISCHARGE. HE FEELS IT IS TOO EARLY TO TELL. HE STATES SHE HAD DECLINED EVEN PRIOR TO ADMISSION. BRIEFLY DISCUSSED SKILLED AND REHAB CARE. ADVISED CM IS VAVAILABLE DAILY TO ASSIST WITH DISCHARGE PLANNING. CM TO FOLLOW. DCPIA - Discharge Planning Initial Assessment Updated by [email or web address]: Julia Reyes on 02/08/20 11:47 am * Is the patient Alert and Oriented? Yes * How many steps to enter\exit or inside your home? NONE * PCP DR BILLY * Pharmacy [facility] [address] * Preadmission Environment Home with Family * ADLs Partial Dependent * Partial ADLs (Assistance needed) Transfers * Equipment Cane * Other Equipment DENIES ANY ADDITIONAL DME * List name and contact numbers for known caregivers / representatives who currently or will assist patient after discharge: JOSÉ LUIS ALBERTO- SPOUSE- [phone] * Community resources currently utilized None * Please name any agencies selected above. STATES THE PATIENT HAS A NURSE FROM [facility] WHO SEES HER. * Additional services required to return to the preadmission environment? Yes * Can the patient safely return to the preadmission environment? Yes * Has this patient been hospitalized within the prior 30 days at any hospital? No External Providers External Provider: [facility] Next Contact Date: Service Request Date: Service Type: Resolution: Reviewer: Comments: Last DP export: 02/08/20 10:59 a Patient Name: ERICA ALBERTO Page 37874 at 1322 All edits/amendments must be made on the electronic document DICTATION DATE: 02/17/20 1322 BOAT CAMP OPERATOR: MIGUEL ANGEL 02/17/20 1322 RPT#: [id number] DC DATE: STATUS: ADM IN [facility] [address] [place] [address] END OF REPORT
--- NOTE | 2020-02-17 13:29 | MORECARE ---
CASE MANAGEMENT DISCHARGE SUMMARY PATIENT: ERICA ALBERTO UNIT: [id number] ADM DATE: 02/04/20 AGE: 79 : 40 SEX: F ROOM/BED: D.2201 AUTHOR: NGUYEN MOREAU PHYSICIAN: REFERRING PHYSICIAN: REFUGIO FABIAN MD DATE OF SERVICE: 02/17/20 Discharge Plan Patient Name: ERICA ALBERTO Facility: [facility]:[place] : 1940 Planned Disposition: Home Anticipated Discharge Date: Discharge Date: Expected LOS: Initial Reviewer: [email or web address] Initial Review Date: 02/04/2020 Generated: 02/17/20 2:29 pm Comments DCP- Discharge Planning Updated by [email or web address]: Edie Thacker on 02/17/20 12:[address] Patient Name: ERICA ALBERTO Encounter No: [id number] : 1940 Primary Insurance: [facility] MEDICARE SOLUTIONS Anticipated DC Date: Planned Disposition: Home External Planned Provider: : DCP follow-up note: [facility] unable to accept pt. Will send referral to [facility]. Patient and family in agreement with discharge plan. Case management will follow and assist as needed. Edie Thacker DCP- Discharge Planning Updated by [id number]: Julia Ryees on 02/08/20 10:[address] CM SPOKE WITH THE PRIMARY NURSE, BRAD. THE PATIENT IS WEAK AND SHORT OF BREATH AT REST. HE IS EXPECTING HER TO VISIT TODAY. TC TO SPEAK WITH THE PATIENT. NO ANSWER TO HER ROOM NUMBER. HER ANSWERED HER CONTACT PHONE NUMBER. HE IS PLANNING TO VISIT TODAY. PCP- DR MARIAJOSE BLANDON [address] [facility] [place] ONLY [facility] NURSE FOLLOWS THE PATIENT. THE SPOUSE STATES HE IS NOT CERTAIN WHAT CARE SHE MAY NEED AT DISCHARGE. HE FEELS IT IS TOO EARLY TO TELL. HE STATES SHE HAD DECLINED EVEN PRIOR TO ADMISSION. BRIEFLY DISCUSSED SKILLED AND REHAB CARE. ADVISED CM IS VAVAILABLE DAILY TO ASSIST WITH DISCHARGE PLANNING. CM TO FOLLOW. DCPIA - Discharge Planning Initial Assessment Updated by [id number]: Julia Reyes on 02/08/20 11:47 am * Is the patient Alert and Oriented? Yes * How many steps to enter\exit or inside your home? NONE * PCP DR BILLY * Pharmacy [facility] [address] * Preadmission Environment Home with Family * ADLs Partial Dependent * Partial ADLs (Assistance needed) Transfers * Equipment Cane * Other Equipment DENIES ANY ADDITIONAL DME * List name and contact numbers for known caregivers / representatives who currently or will assist patient after discharge: JOSÉ LUIS ALBERTO- SPOUSE- [phone] * Community resources currently utilized None * Please name any agencies selected above. STATES THE PATIENT HAS A NURSE FROM [facility] WHO SEES HER. * Additional services required to return to the preadmission environment? Yes * Can the patient safely return to the preadmission environment? Yes * Has this patient been hospitalized within the prior 30 days at any hospital? No Last DP export: 02/17/20 12:22 p Patient Name: ERICA ALBERTO Page 56586 at 1329 All edits/amendments must be made on the electronic document DICTATION DATE: 02/17/20 1329 STAVE BOLT EQUALIZER: MIGUEL ANGEL 02/17/20 1329 RPT#: [id number] DC DATE: STATUS: ADM IN [facility] [address] [place] [address] END OF REPORT
--- NOTE | 2020-02-17 13:30 | NUR ---
PT RESTING IN BED WITH EYES CLOSED. DENIES NEEDS AT THIS TIME. CHEST TUBE REMAINS INTACT TO LEFT CHEST, SCANT AMOUNT OF BLOODY DRAINAGE NOTED AT THIS TIME. RESP EVEN AND UNLABORED. FRESH ICE WATER TAKEN TO PATIENT. CL WITHIN REACH. ENCOURAGED TO CALL WITH NEEDS.
--- NOTE | 2020-02-17 14:15 | NUR ---
PT RESTING IN BED WITH EYES CLOSED. AROUSES STAFF ENTERS ROOM. DENIES NEEDS AT THIS TIME. CL WITHIN REACH. ENCOURAGED TO CALL WITH NEEDS.
--- NOTE | 2020-02-17 14:44 | NUR ---
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
--- NOTE | 2020-02-17 15:00 | NUR ---
PT RESTING QUIETLY IN BED WATCHING TV. RESP EVEN AND UNLABORED. O2 IN PLACE. DENIES PAIN OR FURTHER NEEDS AT THIS TIME. CL WITHIN REACH. ENCOURAGED TO CALL WITH NEEDS.
--- NOTE | 2020-02-17 15:28 | NUR ---
OT NOTE; PT COMPLETED BUE FM/GM ACTIVITIES. PT COMPLETED BED MOB TASKS WITH SBA. [phone] THANK YOU,FRANCES FLOYD
[2020-02-17 16:00] VITALS: BP 152/86
--- NOTE | 2020-02-17 16:30 | NUR ---
PT RESTING IN BED. NO ACUTE DISTRESS NOTED. FRESH ICE WATER TAKEN TO PT. DENIES FURTHER NEEDS AT THIS TIME. CL WITHIN REACH. ENCOURAGED TO CALL WITH NEEDS.
--- NOTE | 2020-02-17 17:10 | NUR ---
PT TRAY TAKEN IN TO PT, ASSISTED WITH SETTING PT UP FOR MEAL. NO ACUTE DISTRESS NOTED AT THIS TIME. DENIES FURTHER NEEDS. CL WITHIN REACH. ENCOURAGED TO CALL WITH NEEDS.
--- NOTE | 2020-02-17 19:00 | NUR ---
BEDSIDE REPORT RECEIVED AND CARE OF PT ASSUMED. PT LYING IN LOW CONSTANTINO'S POSITION WITH EYES CLOSED. IV TO RIGHT FA PATENT WITH NS INFUSING AT 50 ML/HR. TELEMETRY IN PLACE AND READING [address] AT THIS ASSESSMENT. LEFT CHEST TUBE PATENT WITH BLOODY DRAINAGE IN COLLECTION CANNISTER. O2 IN USE VIA NC AT 1L. AIRBORNE ISOLATION PRECAUTIONS ARE IN PLACE. WILL MONITOR FOR NEEDS.
--- NOTE | 2020-02-17 20:22 | NUR ---
HS MEDICATIONS GIVEN. ASSISTED PT UP TO USE BSC TO VOID. WILL CONTINUE TO MONITOR FOR NEEDS.
[2020-02-18] VITALS: BP 160/76
--- NOTE | 2020-02-18 00:10 | NUR ---
ASSISTED PT UP TO USE BSC TO VOID. WILL CONTINUE TO MONITOR FOR NEEDS.
--- NOTE | 2020-02-18 02:00 | NUR ---
ASSISTED PT UP TO USE BSC TO VOID. POSITIONED BACK IN BED FOR COMFORT.
[2020-02-18 04:00] VITALS: BP 165/86
[2020-02-18 04:59] LABS: CALC OSMOLALITY 266 mosm/kg (275-300); CALCIUM 10.1 mg/dL (8.5-10.1); CARBON DIOXIDE 30.7 mmol/L (21.0-32.0); CHLORIDE - SERUM 100 mmol/L (98-107); CREATININE - SERUM 0.6 mg/dL (0.6-1.3); GLUCOSE 97 mg/dL (74-106); POTASSIUM - SERUM 3.4 mmol/L (3.5-5.1); SODIUM 134 mmol/L (136-145); UREA NITROGEN 11 mg/dL (7-18); eGFR NON AFRICAN AMERICAN > 90 mL/min (90-120)
[2020-02-18 05:14] LABS: HEMATOCRIT 29.4 % (36.0-48.0); HEMOGLOBIN 8.8 g/dL (12-16); LYMPHOCYTES 12.8 % (15-50); MCH 24.9 pg (26.0-34.0); MCHC 29.9 g/dL (31.0-37.0); MCV 83.1 fL (80.0-100.0); MEAN PLATELET VOLUME 9.2 fL (7.4-10.4); NEUTROPHILS 81.6 % (40-80); PLATELET COUNT 348 10x3/uL (130-400); RBC 3.54 10x6/uL (4.00-5.40); RDW 16.8 % (11.5-14.5); WBC 13.7 10x3/uL (4.8-10.8)
--- NOTE | 2020-02-18 07:56 | MORECARE ---
CASE MANAGEMENT DISCHARGE SUMMARY PATIENT: ERICA ALBERTO UNIT: [id number] ADM DATE: 02/04/20 AGE: 79 : 40 SEX: F ROOM/BED: D.2201 AUTHOR: NGUYEN MOREAU PHYSICIAN: REFERRING PHYSICIAN: REFUGIO FABIAN MD DATE OF SERVICE: 02/18/20 Discharge Plan Patient Name: ERICA ALBERTO Facility: [facility]:[place] : 1940 Planned Disposition: Home Anticipated Discharge Date: Discharge Date: Expected LOS: Initial Reviewer: [email or web address] Initial Review Date: 02/04/2020 Generated: 02/18/20 8:56 am Comments DCP- Discharge Planning Updated by [email or web address]: Edie Thacker on 02/18/20 6:[address] Patient Name: ERICA ALBERTO Encounter No: [id number] : 1940 Primary Insurance: [facility] MEDICARE SOLUTIONS Anticipated DC Date: Planned Disposition: Home External Planned Provider: : DCP follow-up note: [facility] unable to accept pt. Will send referral to [facility]. CM SPOKE WITH PHIL. Patient and family in agreement with discharge plan. Case management will follow and assist as needed. Edie Thacker DCP- Discharge Planning Updated by [email or web address]: Julia Reyes on 02/08/20 10:[address] CM SPOKE WITH THE PRIMARY NURSE, BRAD. THE PATIENT IS WEAK AND SHORT OF BREATH AT REST. HE IS EXPECTING HER TO VISIT TODAY. TC TO SPEAK WITH THE PATIENT. NO ANSWER TO HER ROOM NUMBER. HER ANSWERED HER CONTACT PHONE NUMBER. HE IS PLANNING TO VISIT TODAY. PCP- DR BILLY [facility]ACY- [place] [address] [facility] [place] [place] ONLY [facility] NURSE FOLLOWS THE PATIENT. THE SPOUSE STATES HE IS NOT CERTAIN WHAT CARE SHE MAY NEED AT DISCHARGE. HE FEELS IT IS TOO EARLY TO TELL. HE STATES SHE HAD DECLINED EVEN PRIOR TO ADMISSION. BRIEFLY DISCUSSED SKILLED AND REHAB CARE. ADVISED CM IS VAVAILABLE DAILY TO ASSIST WITH DISCHARGE PLANNING. CM TO FOLLOW. DCPIA - Discharge Planning Initial Assessment Updated by [email or web address]: Julia Reyes on 02/08/20 11:47 am * Is the patient Alert and Oriented? Yes * How many steps to enter\exit or inside your home? NONE * PCP DR BILLY * Pharmacy [facility] [address] * Preadmission Environment Home with Family * ADLs Partial Dependent * Partial ADLs (Assistance needed) Transfers * Equipment Cane * Other Equipment DENIES ANY ADDITIONAL DME * List name and contact numbers for known caregivers / representatives who currently or will assist patient after discharge: JOSÉ LUIS ALBERTO- SPOUSE- [phone] * Community resources currently utilized None * Please name any agencies selected above. STATES THE PATIENT HAS A NURSE FROM [facility] WHO SEES HER. * Additional services required to return to the preadmission environment? Yes * Can the patient safely return to the preadmission environment? Yes * Has this patient been hospitalized within the prior 30 days at any hospital? No Last DP export: 02/17/20 12:29 p Patient Name: ERICA ALBERTO Page 85139 at 0756 All edits/amendments must be made on the electronic document DICTATION DATE: 02/18/20755 JIG BORING MACHINE OPERATOR FOR METAL: MIGUEL ANGEL 02/18/20 0756 RPT#: [id number] DC DATE: STATUS: ADM IN [facility] [address] [place] [address] END OF REPORT
--- NOTE | 2020-02-18 08:00 | NUR ---
RESTING QUIETLY IN BED WITH EYES CLOSED. BREAKFAST SERVED IN ROOM.
--- NOTE | 2020-02-18 10:00 | NUR ---
GIVEN AM MEDS WITHOUT DIFFICULTY. UP TO BSC WITH ONE PERSON MIN ASSIST. HAD LARGE AMOUNT OF LOOSE DARK STOOL. SKIN CARE PER STAFF. LUNGS ARE CLEAR BUT DIMINISHED IN LEFT LOBES. CHEST TUBE IS PATENT TO LEFT CHEST WITH SCANT BLOODY OUTPUT. IV TO RIGHT FOREARM IS PATENT WITHOUT REDNESS AT INSERTION SITE. ATE ONLY A FEW BITES OF BREAKFAST BECAUSE IT WAS COLD. REFUSED OFFER OF ALTERNATIVE. WORKING WITH OT AND PT AT THIS TIME.
--- NOTE | 2020-02-18 10:58 | NUR ---
OT NOTE: ASSISTED PT WITH TOILETING; MAX ASSIST FOR HYGIENE WITH BM; MAX ASSIST TO ADAMA/DOFF SOCKS; AMB TO SINK TO WASH HANDS WITH MIN ASSIST FOR BALANCE AND VERBAL CUES FOR HAND WASHING. PT VERY WEAK AND WANTS TO STAY IN BED; ENCOURAGED PT TO SIT UP IN CHAIR TO PREVENT FURTHER DECLINE. AROM EXS IN SITTING WITH DEMONSTRATIONAL CUES. PT WITH CHAIR ALARM ON AND SET UP WITH PHONE, CALL LIGHT, AND PUZZLES. ENCOURAGED TO STAY UP THROUGH LUNCH. GRACE BRADLEY, OTR/L [phone]
--- NOTE | 2020-02-18 11:18 | MORECARE ---
CASE MANAGEMENT DISCHARGE SUMMARY PATIENT: ERICA ALBERTO UNIT: [id number] ADM DATE: 02/04/20 AGE: 79 : 40 SEX: F ROOM/BED: D.2201 AUTHOR: NGUYEN MOREAU PHYSICIAN: REFERRING PHYSICIAN: REFUGOI FABIAN MD DATE OF SERVICE: 02/18/20 Discharge Plan Patient Name: ERICA ALBERTO Facility: [facility]:[place] : 1940 Planned Disposition: Home Anticipated Discharge Date: Discharge Date: Expected LOS: Initial Reviewer: [email or web address] Initial Review Date: 02/04/2020 Generated: 02/18/20 12:18 pm Comments DCP- Discharge Planning Updated by [id number]: Michelle Webb on 02/18/20 10:[address] CM spoke with [facility] and patient is denied d/t not having a negative pressure room. CM will continue to follow and assist as needed with discharge planning / needs. DCP- Discharge Planning Updated by [id number]: Edie Thacker on 02/18/20 6:[address] Patient Name: ERICA ALBERTO Encounter No: [id number] : 1940 Primary Insurance: [facility] MEDICARE SOLUTIONS Anticipated DC Date: Planned Disposition: Home External Planned Provider: : DCP follow-up note: [facility] unable to accept pt. Will send referral to [facility]. CM SPOKE WITH PHIL. Patient and family in agreement with discharge plan. Case management will follow and assist as needed. Edie Thacker DCP- Discharge Planning Updated by [id number]: Julia Reyes on 02/08/20 10:[address] CM SPOKE WITH THE PRIMARY NURSE, BRAD. THE PATIENT IS WEAK AND SHORT OF BREATH AT REST. HE IS EXPECTING HER TO VISIT TODAY. TC TO SPEAK WITH THE PATIENT. NO ANSWER TO HER ROOM NUMBER. HER ANSWERED HER CONTACT PHONE NUMBER. HE IS PLANNING TO VISIT TODAY. PCP- DR MARIAJOSE BUSTILLO- [place] [address] [facility] [place] ONLY [facility] NURSE FOLLOWS THE PATIENT. THE SPOUSE STATES HE IS NOT CERTAIN WHAT CARE SHE MAY NEED AT DISCHARGE. HE FEELS IT IS TOO EARLY TO TELL. HE STATES SHE HAD DECLINED EVEN PRIOR TO ADMISSION. BRIEFLY DISCUSSED SKILLED AND REHAB CARE. ADVISED CM IS VAVAILABLE DAILY TO ASSIST WITH DISCHARGE PLANNING. CM TO FOLLOW. DCPIA - Discharge Planning Initial Assessment Updated by [id number]: Julia Reyes on 02/08/20 11:47 am * Is the patient Alert and Oriented? Yes * How many steps to enter\exit or inside your home? NONE * PCP DR BILLY * Pharmacy [facility] [address] * Preadmission Environment Home with Family * ADLs Partial Dependent * Partial ADLs (Assistance needed) Transfers * Equipment Cane * Other Equipment DENIES ANY ADDITIONAL DME * List name and contact numbers for known caregivers / representatives who currently or will assist patient after discharge: JOSÉ LUIS ALBERTO- SPOUSE- [phone] * Community resources currently utilized None * Please name any agencies selected above. STATES THE PATIENT HAS A NURSE FROM [facility] WHO SEES HER. * Additional services required to return to the preadmission environment? Yes * Can the patient safely return to the preadmission environment? Yes * Has this patient been hospitalized within the prior 30 days at any hospital? No Last DP export: 02/18/20 6:56 a Patient Name: ERICA ALBERTO Page 95860 at 1118 All edits/amendments must be made on the electronic document DICTATION DATE: 02/18/201117 INNER TUBE INSERTER: MIGUEL ANGEL 02/18/201117 RPT#: [id number] DC DATE: STATUS: ADM IN [facility] [address] [place] [address] END OF REPORT
--- NOTE | 2020-02-18 12:30 | NUR ---
ATE ABOUT 25% OF LUNCH. DENIES NEEDS.
--- NOTE | 2020-02-18 15:00 | NUR ---
RESTING QUIETLY IN BED WITH EYES CLOSED. DENIES NEEDS.
--- NOTE | 2020-02-18 15:35 | NUR ---
I spoke with [facility] regarding patient test and faxed CT/XRAY/lab/H&P notes on 02/13/2020. Updates given today to [facility]. from [facility] may call DR. Downing.
--- NOTE | 2020-02-18 17:30 | NUR ---
AWOKEN FROM NAP SLIGHTLY CONFUSED TO TIME AND PLACE. REORIENTED PER STAFF. NO CHANGES NOTED. DENIES NEEDS.
--- NOTE | 2020-02-18 18:00 | MORECARE ---
CASE MANAGEMENT DISCHARGE SUMMARY PATIENT: ERICA ALBERTO UNIT: [id number] ADM DATE: 02/04/20 AGE: 79 : 40 SEX: F ROOM/BED: D.2201 AUTHOR: NGUYEN MOREAU PHYSICIAN: REFERRING PHYSICIAN: REFUIGO FABIAN MD DATE OF SERVICE: 02/18/20 Discharge Plan Patient Name: ERICA ALBERTO Facility: [facility]:[place] : 1940 Planned Disposition: Home Anticipated Discharge Date: Discharge Date: Expected LOS: Initial Reviewer: [id number] Initial Review Date: 02/04/2020 Generated: 02/18/20 6:59 pm Comments DCP- Discharge Planning Updated by [id number]: Michelle Webb on 02/18/20 4:[address] Patient Name: ERICA ALBERTO Admission Status: ER Accout number: [id number] Admission Date: 02-04-2020 : 1940 Admission Diagnosis:OTHER DISORDERS OF LUNG Attending: REFUGIO FABIAN Current LOS: 14 Anticipated DC Date: Planned Disposition: Home Primary Insurance: [facility] MEDICARE SOLUTIONS Discharge Planning Comments: CM called and spoke with [place] with [facility] to find out if they have any facilities that have negative pressure rooms. She checked and called CM back and stated that they did not. CM contacted [facility] to check and see if they had any facilities that might be able to take patient. CM will continue to follow and assist as needed with discharge planning / needs. Hardware Installer: Michelle Webb DCP- Discharge Planning Updated by [id number]: Michelle Webb on 02/18/20 10:[address] CM spoke with [facility] and patient is denied d/t not having a negative pressure room. CM will continue to follow and assist as needed with discharge planning / needs. DCP- Discharge Planning Updated by [id number]: Edie Thacker on 02/18/20 6:[address] Patient Name: ERICA ALBERTO Encounter No: [id number] : 1940 Primary Insurance: [facility] MEDICARE SOLUTIONS Anticipated DC Date: Planned Disposition: Home External Planned Provider: : DCP follow-up note: [facility] unable to accept pt. Will send referral to [facility]. CM SPOKE WITH PHIL. Patient and family in agreement with discharge plan. Case management will follow and assist as needed. Edie Thacker DCP- Discharge Planning Updated by [id number]: Julia Reyes on 02/08/20 10:[address] CM SPOKE WITH THE PRIMARY NURSE, BRAD. THE PATIENT IS WEAK AND SHORT OF BREATH AT REST. HE IS EXPECTING HER TO VISIT TODAY. TC TO SPEAK WITH THE PATIENT. NO ANSWER TO HER ROOM NUMBER. HER ANSWERED HER CONTACT PHONE NUMBER. HE IS PLANNING TO VISIT TODAY. PCP- DR BILLY PHARMACY- [facility] [address] D[address]- [place] ONLY [facility] NURSE FOLLOWS THE PATIENT. THE SPOUSE STATES HE IS NOT CERTAIN WHAT CARE SHE MAY NEED AT DISCHARGE. HE FEELS IT IS TOO EARLY TO TELL. HE STATES SHE HAD DECLINED EVEN PRIOR TO ADMISSION. BRIEFLY DISCUSSED SKILLED AND REHAB CARE. ADVISED CM IS VAVAILABLE DAILY TO ASSIST WITH DISCHARGE PLANNING. CM TO FOLLOW. DCPIA - Discharge Planning Initial Assessment Updated by [id number]: Julia Reyes on 02/08/20 11:47 am * Is the patient Alert and Oriented? Yes * How many steps to enter\exit or inside your home? NONE * PCP DR BILLY * Pharmacy [facility] [address] * Preadmission Environment Home with Family * ADLs Partial Dependent * Partial ADLs (Assistance needed) Transfers * Equipment Cane * Other Equipment DENIES ANY ADDITIONAL DME * List name and contact numbers for known caregivers / representatives who currently or will assist patient after discharge: JOSÉ LUIS ALBERTO- SPOUSE- [phone] * Community resources currently utilized None * Please name any agencies selected above. STATES THE PATIENT HAS A NURSE FROM [facility] WHO SEES HER. * Additional services required to return to the preadmission environment? Yes * Can the patient safely return to the preadmission environment? Yes * Has this patient been hospitalized within the prior 30 days at any hospital? No Last DP export: 02/18/20 10:18 a Patient Name: ERICA ALBERTO Page 36388 at 1800 All edits/amendments must be made on the electronic document DICTATION DATE: 031758 ROCKET MOTOR TESTER: DM 02/18/201758 RPT#: [id number] DC DATE: STATUS: ADM IN [facility] [address] [place] [address] END OF REPORT
[2020-02-18 23:40] VITALS: BP 120/64
[2020-02-19 00:30] VITALS: BP 147/82
--- NOTE | 2020-02-19 01:14 | NUR ---
D/C NEGATIVE PRESSUR ROMM AND AIR BORNE ISOLSTION PER CRISTINE CONDE.
[2020-02-19 04:30] VITALS: BP 161/81
[2020-02-19 05:11] LABS: BASOPHILS 0.2 % (0-2); EOSINOPHILS 0.8 % (0-7); HEMATOCRIT 29.5 % (36.0-48.0); HEMOGLOBIN 8.6 g/dL (12-16); IMMATURE GRANULOCYTES 0.4 % (0-5); LYMPHOCYTES 11.1 % (15-50); MCH 24.8 pg (26.0-34.0); MCHC 29.2 g/dL (31.0-37.0); MEAN PLATELET VOLUME 8.6 fL (7.4-10.4); MONOCYTES 6.6 % (2-11); NEUTROPHILS 80.9 % (40-80); PLATELET COUNT 346 10x3/uL (130-400); RBC 3.47 10x6/uL (4.00-5.40); RDW 17.6 % (11.5-14.5); WBC 14.6 10x3/uL (4.8-10.8)
[2020-02-19 05:34] LABS: CALC OSMOLALITY 266 mosm/kg (275-300); CALCIUM 10.1 mg/dL (8.5-10.1); CARBON DIOXIDE 29.9 mmol/L (21.0-32.0); CHLORIDE - SERUM 99 mmol/L (98-107); CREATININE - SERUM 0.6 mg/dL (0.6-1.3); GLUCOSE 101 mg/dL (74-106); POTASSIUM - SERUM 4.1 mmol/L (3.5-5.1); SODIUM 133 mmol/L (136-145); UREA NITROGEN 15 mg/dL (7-18); eGFR NON AFRICAN AMERICAN > 90 mL/min (90-120)
--- NOTE | 2020-02-19 07:00 | NUR ---
PT IS RESTING IN BED WITH EYES CLOSED. RESPIRAATIONS ARE EVEN AND UNLABORED. PT IS EASILY AROUSED WITH VERBAL STIMULATION. PT IS AAO X 4 UPON AROUSAL. SLOW TO RESPOND TO QUESTIONS BUT ANSWERS ALL QUESTIONS APPROPRIATLEY. LEFT FLANK/BACK CHEST TUBE NOTED. DRESSING IN PLACE AND IS CDI. BLOODY DRAINAGE NOTED TO TUBING. PT DENIES PRESENCE OF PAIN/N/V/DYSPNEA AT THIS TIME. FALL PRECAUTIONS ARE IN PLACE. BED IS IN THE LOWEST POSITION. CALL LIGHT AND BEDSIDE TABLE ARE WITHIN REACH. SIDE RAILS X 2. PT DENIES FURTHER NEEDS. WILL CONT TO MONITOR.
[2020-02-19 08:00] VITALS: BP 140/72
--- NOTE | 2020-02-19 09:39 | NUR ---
STOP COCK VALVE OPEN TO LEFT CHEST TUBE PER INSTRUCTION FROM IR.
[2020-02-19 11:08] LABS: FUNGUS STAIN Final report (())
[2020-02-19 12:57] VITALS: BP 159/63
--- NOTE | 2020-02-19 14:39 | NUR ---
PT SITTING IN BEDSIDE CHAIR AND REQUESTS TO RETURN TO BED. PT ASSISTED WITH 2 PERSON ASSIST FROM BEDSIDE CHAIR TO BED. PT DENIES PRESENCE OF PAIN/N/V/DYSPNEA AT THIS TIME. BED ALARM IS ON AND WORKING. BED IS IN THE LOWEST POSITION. CALL LIGHT AND BEDSIDE TABLE ARE WITHIN REACH. SIDE RAILS X 2. PT DENIES FURTHER NEEDS. WILL CONT TO MONITOR.
[2020-02-19 17:10] VITALS: BP 126/60
[2020-02-19 20:00] VITALS: BP 167/893
--- NOTE | 2020-02-19 20:11 | MORECARE ---
CASE MANAGEMENT DISCHARGE SUMMARY PATIENT: ERICA ALBERTO UNIT: [id number] ADM DATE: 02/04/20 AGE: 79 : 40 SEX: F ROOM/BED: D.2201 AUTHOR: NGUYEN MOREAU PHYSICIAN: REFERRING PHYSICIAN: REFUGIO FABIAN MD DATE OF SERVICE: 02/19/20 Discharge Plan Patient Name: ERICA ALBERTO Facility: [facility]:[place] : 1940 Planned Disposition: Home Anticipated Discharge Date: Discharge Date: Expected LOS: Initial Reviewer: [email or web address] Initial Review Date: 02/04/2020 Generated: 02/19/20 9:10 pm Comments DCP- Discharge Planning Updated by [id number]: Michelle Webb on 02/19/20 7:[address] CM was notified that patient could go to Inpatient Rehab @ [facility] - Dr. Ferreira had agreed to take patient to rehab with chest tube now that she is out of isolation. Dr. Downing stated that he did not want patient going to rehab yet. Dr. Downing stated that she needs to go to in am for chest tube adjustment v/s removal. CM will continue to follow and assist as needed with discharge planning v/s needs. DCP- Discharge Planning Updated by [id number]: Michelle Webb on 02/18/20 4:[address] Patient Name: ERICA ALBERTO Admission Status: ER Accout number: [id number] Admission Date: 02-04-2020 : 1940 Admission Diagnosis:OTHER DISORDERS OF LUNG Attending: REFUGIO FABIAN Current LOS: 14 Anticipated DC Date: Planned Disposition: Home Primary Insurance: [facility] MEDICARE SOLUTIONS Discharge Planning Comments: CM called and spoke with Victorina with [facility] to find out if they have any facilities that have negative pressure rooms. She checked and called CM back and stated that they did not. CM contacted [facility] to check and see if they had any facilities that might be able to take patient. CM will continue to follow and assist as needed with discharge planning / needs. Revenue Inspector: Michelle Webb DCP- Discharge Planning Updated by [id number]: Michelle Webb on 02/18/20 10:[address] CM spoke with [facility] and patient is denied d/t not having a negative pressure room. CM will continue to follow and assist as needed with discharge planning / needs. DCP- Discharge Planning Updated by [id number]: Edie Thacker on 02/18/20 6:[address] Patient Name: ERICA ALBERTO Encounter No: [id number] : 1940 Primary Insurance: [facility] MEDICARE SOLUTIONS Anticipated DC Date: Planned Disposition: Home External Planned Provider: : DCP follow-up note: [facility] unable to accept pt. Will send referral to [facility]. CM SPOKE WITH PHIL. Patient and family in agreement with discharge plan. Case management will follow and assist as needed. Edie Thacker DCP- Discharge Planning Updated by [id number]: Julia Reyes on 02/08/20 10:[address] CM SPOKE WITH THE PRIMARY NURSE, BRAD. THE PATIENT IS WEAK AND SHORT OF BREATH AT REST. HE IS EXPECTING HER TO VISIT TODAY. TC TO SPEAK WITH THE PATIENT. NO ANSWER TO HER ROOM NUMBER. HER ANSWERED HER CONTACT PHONE NUMBER. HE IS PLANNING TO VISIT TODAY. PCP- DR [facility]- [facility] [address]- [address] ONLY [facility] NURSE FOLLOWS THE PATIENT. THE SPOUSE STATES HE IS NOT CERTAIN WHAT CARE SHE MAY NEED AT DISCHARGE. HE FEELS IT IS TOO EARLY TO TELL. HE STATES SHE HAD DECLINED EVEN PRIOR TO ADMISSION. BRIEFLY DISCUSSED SKILLED AND REHAB CARE. ADVISED CM IS VAVAILABLE DAILY TO ASSIST WITH DISCHARGE PLANNING. CM TO FOLLOW. DCPIA - Discharge Planning Initial Assessment Updated by [email or web address]: Julia Reyes on 02/08/20 11:47 am * Is the patient Alert and Oriented? Yes * How many steps to enter\exit or inside your home? NONE * PCP DR BILLY * Pharmacy [facility] [address] * Preadmission Environment Home with Family * ADLs Partial Dependent * Partial ADLs (Assistance needed) Transfers * Equipment Cane * Other Equipment DENIES ANY ADDITIONAL DME * List name and contact numbers for known caregivers / representatives who currently or will assist patient after discharge: JOSÉ LUIS ALBERTO- SPOUSE- [phone] * Community resources currently utilized None * Please name any agencies selected above. STATES THE PATIENT HAS A NURSE FROM [facility] WHO SEES HER. * Additional services required to return to the preadmission environment? Yes * Can the patient safely return to the preadmission environment? Yes * Has this patient been hospitalized within the prior 30 days at any hospital? No Last DP export: 02/18/20 5:00 p Patient Name: ERICA ALBERTO Page [id number] at 2011 All edits/amendments must be made on the electronic document DICTATION DATE: 02/19/202009 CLERK TRAVEL RESERVATIONS: MIGUEL ANGEL 02/19/202009 RPT#: [id number] DC DATE: STATUS: ADM IN [facility] [address] [place] [address] END OF REPORT
--- NOTE | 2020-02-19 21:07 | NUR ---
TYLENOL 650MG GIVEN BY MOUTH AT 2000 FOR TEMP OF 100.7 RECHECK AT THIS TIME IS 99.0. PATIENT RESTING IN BED WITH NO NEEDS STATED OR NOTED. NO S/S OF DESTRESS IV TO RIGHT FA WITH NS AT 50ML/HR. TLEMETRY IN PLACE. CONTIUE TO REFUSE SCD'S.
[2020-02-20] VITALS (7 sets, daily range): BP systolic 132–152; BP diastolic 65–72
[2020-02-20 04:18] LABS: BASOPHILS 0.2 % (0-2); EOSINOPHILS 0.5 % (0-7); HEMATOCRIT 26.3 % (36.0-48.0); IMMATURE GRANULOCYTES 0.5 % (0-5); LYMPHOCYTES 10.2 % (15-50); MCH 24.4 pg (26.0-34.0); MCHC 28.5 g/dL (31.0-37.0); MCV 85.7 fL (80.0-100.0); MEAN PLATELET VOLUME 8.7 fL (7.4-10.4); MONOCYTES 7.4 % (2-11); NEUTROPHILS 81.2 % (40-80); PLATELET COUNT 330 10x3/uL (130-400); RBC 3.07 10x6/uL (4.00-5.40); RDW 17.7 % (11.5-14.5); WBC 15.3 10x3/uL (4.8-10.8)
[2020-02-20 04:46] LABS: CALC OSMOLALITY 269 mosm/kg (275-300); CARBON DIOXIDE 31.3 mmol/L (21.0-32.0); CHLORIDE - SERUM 99 mmol/L (98-107); CREATININE - SERUM 0.7 mg/dL (0.6-1.3); GLUCOSE 115 mg/dL (74-106); POTASSIUM - SERUM 3.6 mmol/L (3.5-5.1); SODIUM 134 mmol/L (136-145); UREA NITROGEN 16 mg/dL (7-18); eGFR NON AFRICAN AMERICAN 85 mL/min (90-120)
[2020-02-20 04:56] LABS: HEMOGLOBIN 7.5 g/dL (12-16)
--- NOTE | 2020-02-20 07:40 | NUR ---
PT RESTING IN BED. VOICES NEED TO USE BED SIDE COMMODE. PT INCONTINENT OF URINE AND BOWEL AT THIS TIME. LARGE BM NOTED. PROVIDED MILAGROS CARE AND ASSISTED BACK TO BED AT THIS TIME. RESP EVEN AND UNLABORED. IV TO RIGHT FOREARM WITH NS @ 50ML/HR INFUSING VIA PUMP. SITE WITHOUT REDNESS OR EDEMA. CHEST TUBE INTACT TO LEFT CHEST WALL. SCANT DRAINAGE NOTED. DENIES PAIN AT THIS TIME. CL WITHIN REACH. ENCOURAGED TO CALL WITH NEEDS. CONTINUE POC
[2020-02-20 08:20] LABS: INR 1.09 (0.85-1.17); PROTIME 14.1 SECONDS (11.6-15.0)
--- NOTE | 2020-02-20 10:30 | NUR ---
PT SITTING UP IN CHAIR AT BEDSIDE. RESP EVEN AND UNLABORED. DENIES NEEDS AT THIS TIME. CL WITHIN REACH. ENCOURAGED TO CALL WITH NEEDS.
--- NOTE | 2020-02-20 10:48 | NUR ---
UNIT RBC INITIATED AT THIS TIME.
--- NOTE | 2020-02-20 11:23 | NUR ---
OT NOTE: PT PERFORMED WELL TODAY; BED MOB WITH MIN ASSIST; TOILET TRANSFER WITH MIN ASSIST AND USE OF WALKER; TOILET HYGIENE WITH MOD ASSIST; CLOTHING MGMT WITH MOD/MAX ASSIST; ABLE TO AMB IN ROOM TO SINK WITH WALKER, IV, DRAIN TUBE AND MIN ASSIST. ABLE TO AMB INTO HALLWAY TO IMPROVE STRENGTH AND ENDURANCE WITH MIN ASSIST X 100 FT. TRANSFERRED TO CHAIR WITH MIN ASSIST. EDUCATED ON EXS FOR LES WHILE SITTING UP IN CHAIR. GRACE BRADLEY,OTR/L [phone]
--- NOTE | 2020-02-20 11:26 | NUR ---
NEW IV IN THE LEFT ARM 20 G. BLOOD RESTARTED.
--- NOTE | 2020-02-20 12:23 | NUR ---
PT TAKEN VIA BED TO IR FOR PROCEDURE. NO ACUTE DISTRESS NOTED AT THIS TIME. PRIOR TO TRANSFER, PT ASSISTED TO BSC AND BACK TO BED X 1 ASSIST. MEDIUM BM NOTED AT THIS TIME
--- NOTE | 2020-02-20 13:25 | NUR ---
PT RETURNED FROM IR VIA BED. DRESSING C/D/I TO LEFT CHEST WALL. RESP EVEN AND UNLABORED. PT DENIES PAIN AT THIS TIME. CL WITHIN REACH. ENCOURAGED TO CALL WITH NEEDS
--- NOTE | 2020-02-20 20:00 | NUR ---
PATIENT RESTING IN BED WITH EYES OPEN. NO S/S OF DISTRESS. NO C/O AT THIS TIME. PATIENT IS SLOW TO RESPOND BUT IS ALERT AND ORIENTATED X4. PATIENT HAS IV IN RIGHT FOREARM NORMAL SALINE @ 50 ML/HR. IV IS PATENT WITHOUT REDNESS, SWELLING, OR TENDERNESS. PATIENT HAS TELEMETRY: 122 SINUS TACH. PATIENT HAD LEFT CHEST TUBE REMOVED TODAY AND DRESSING IS C/D/I. PATIENT IS UP WITH ASSIST TO THE BEDSIDE COMMODE. PATIENT HAS SOME INCONTINENCE, AND BREIF IS IN PLACE. CALL LIGHT IN PLACE. WILL CONTINUE TO MONITOR.
[2020-02-21] VITALS: BP 142/55
[2020-02-21 04:00] VITALS: BP 168/74
[2020-02-21 04:24] LABS: BASOPHILS 0.2 % (0-2); EOSINOPHILS 0.5 % (0-7); HEMATOCRIT 29.6 % (36.0-48.0); HEMOGLOBIN 8.9 g/dL (12-16); IMMATURE GRANULOCYTES 0.4 % (0-5); LYMPHOCYTES 10.4 % (15-50); MCH 25.9 pg (26.0-34.0); MCHC 30.1 g/dL (31.0-37.0); MEAN PLATELET VOLUME 8.9 fL (7.4-10.4); MONOCYTES 8.4 % (2-11); NEUTROPHILS 80.1 % (40-80); PLATELET COUNT 373 10x3/uL (130-400); RBC 3.44 10x6/uL (4.00-5.40); RDW 17.3 % (11.5-14.5); WBC 16.7 10x3/uL (4.8-10.8)
[2020-02-21 04:50] LABS: ALBUMIN 1.5 g/dL (3.4-5.0); ALKALINE PHOSPHATASE 101 U/L (30-120); ALT (SGPT) 23 U/L (10-68); BILIRUBIN - TOTAL 0.55 mg/dL (0.2-1.3); CALC OSMOLALITY 269 mosm/kg (275-300); CALCIUM 9.9 mg/dL (8.5-10.1); CARBON DIOXIDE 28.6 mmol/L (21.0-32.0); CHLORIDE - SERUM 101 mmol/L (98-107); CREATININE - SERUM 0.6 mg/dL (0.6-1.3); GLUCOSE 111 mg/dL (74-106); POTASSIUM - SERUM 3.1 mmol/L (3.5-5.1); PROTEIN - SERUM 5.7 g/dL (6.4-8.2); SODIUM 134 mmol/L (136-145); UREA NITROGEN 14 mg/dL (7-18); eGFR NON AFRICAN AMERICAN > 90 mL/min (90-120)
[2020-02-21 07:40] VITALS: BP 169/76
--- NOTE | 2020-02-21 07:41 | NUR ---
PT IS RESTING IN BED WITH EYES OPEN. RESPIRATIONS ARE SHALLOW EVEN AND UNLABORED. PT IS ON ROOM AIR. PT DENIES PRESENCE OF PAIN/N/V/DYSPNEA AT THIS TIME. DRESSING TO LEFT BACK FROM CHEST TUBE REMOVAL IN PLACE AND CDI. PT DENIES PRESENCE OF NUMBNESS TINGLING TO BUE AND BLE. BILATERAL PEDAL PULSES PALP AND CAP REFILL IS < 3 SECONDS. FALL PRECAUTIONS IN PLACE. BED IS IN THE LOWEST POSITION. CALL LIGHT AND BEDSIDE TABLE ARE WITHIN REACH. SIDE RAILS X 2. PT DENIES FURTHER NEEDS. WILL CONT TO MONITOR.
--- NOTE | 2020-02-21 09:05 | MORECARE ---
CASE MANAGEMENT DISCHARGE SUMMARY PATIENT: ERICA ALBERTO UNIT: [id number] ADM DATE: 02/04/20 AGE: 79 : 40 SEX: F ROOM/BED: D.2201 AUTHOR: NGUYEN MOREAU PHYSICIAN: REFERRING PHYSICIAN: REFUGIO FABIAN MD DATE OF SERVICE: 02/21/20 Discharge Plan Patient Name: ERICA ALBETRO Facility: [facility]:[place] : 1940 Planned Disposition: Inpatient Rehab Anticipated Discharge Date: 02/21/20 Discharge Date: Expected LOS: 17 Initial Reviewer: [email or web address] Initial Review Date: 02/04/2020 Generated: 02/21/20 10:05 am Comments DCP- Discharge Planning Updated by [email or web address]: Michelle Webb on 02/19/20 7:[address] CM was notified that patient could go to Inpatient Rehab @ [facility] - Dr. Ferreira had agreed to take patient to rehab with chest tube now that she is out of isolation. Dr. Downing stated that he did not want patient going to rehab yet. Dr. Downing stated that she needs to go to in am for chest tube adjustment v/s removal. CM will continue to follow and assist as needed with discharge planning v/s needs. DCP- Discharge Planning Updated by [id number]: Michelle Webb on 02/18/20 4:[address] Patient Name: ERICA ALBERTO Admission Status: ER Accout number: [id number] Admission Date: 02-04-2020 : 1940 Admission Diagnosis:OTHER DISORDERS OF LUNG Attending: REFUGIO FABIAN Current LOS: 14 Anticipated DC Date: Planned Disposition: Home Primary Insurance: [facility] MEDICARE SOLUTIONS Discharge Planning Comments: CM called and spoke with Victorina with [facility] to find out if they have any facilities that have negative pressure rooms. She checked and called CM back and stated that they did not. CM contacted [facility] to check and see if they had any facilities that might be able to take patient. CM will continue to follow and assist as needed with discharge planning / needs. Inspector Printed Circuit Boards: Michelle Webb DCP- Discharge Planning Updated by [email or web address]: Michelle Webb on 02/18/20 10:[address] CM spoke with [facility] and patient is denied d/t not having a negative pressure room. CM will continue to follow and assist as needed with discharge planning / needs. DCP- Discharge Planning Updated by [email or web address]: Edie Thacker on 02/18/20 6:[address] Patient Name: ERICA ALBERTO Encounter No: [id number] : 1940 Primary Insurance: [facility] MEDICARE SOLUTIONS Anticipated DC Date: Planned Disposition: Home External Planned Provider: : DCP follow-up note: [facility] unable to accept pt. Will send referral to [facility]. CM SPOKE WITH PHIL. Patient and family in agreement with discharge plan. Case management will follow and assist as needed. Edie Thacker DCP- Discharge Planning Updated by [id number]: Julia Reyes on 02/08/20 10:[address] CM SPOKE WITH THE PRIMARY NURSE, BRAD. THE PATIENT IS WEAK AND SHORT OF BREATH AT REST. HE IS EXPECTING HER TO VISIT TODAY. TC TO SPEAK WITH THE PATIENT. NO ANSWER TO HER ROOM NUMBER. HER ANSWERED HER CONTACT PHONE NUMBER. HE IS PLANNING TO VISIT TODAY. PCP- DR [facility]Y [facility]- [facility] [address]- [address] ONLY [facility] NURSE FOLLOWS THE PATIENT. THE SPOUSE STATES HE IS NOT CERTAIN WHAT CARE SHE MAY NEED AT DISCHARGE. HE FEELS IT IS TOO EARLY TO TELL. HE STATES SHE HAD DECLINED EVEN PRIOR TO ADMISSION. BRIEFLY DISCUSSED SKILLED AND REHAB CARE. ADVISED CM IS VAVAILABLE DAILY TO ASSIST WITH DISCHARGE PLANNING. CM TO FOLLOW. DCPIA - Discharge Planning Initial Assessment Updated by [id number]: Julia Reyes on 02/08/20 11:47 am * Is the patient Alert and Oriented? Yes * How many steps to enter\exit or inside your home? NONE * PCP DR BILLY * Pharmacy [facility] [address] * Preadmission Environment Home with Family * ADLs Partial Dependent * Partial ADLs (Assistance needed) Transfers * Equipment Cane * Other Equipment DENIES ANY ADDITIONAL DME * List name and contact numbers for known caregivers / representatives who currently or will assist patient after discharge: JOSÉ LUIS ALBERTO- SPOUSE- [phone] * Community resources currently utilized None * Please name any agencies selected above. STATES THE PATIENT HAS A NURSE FROM [facility] WHO SEES HER. * Additional services required to return to the preadmission environment? Yes * Can the patient safely return to the preadmission environment? Yes * Has this patient been hospitalized within the prior 30 days at any hospital? No Last DP export: 02/19/20 7:11 pm Patient Name: ERICA ALBERTO Page 43144 at 0905 All edits/amendments must be made on the electronic document DICTATION DATE: 02/21/20904 GLASS UNLOADING EQUIPMENT TENDER: DM 02/21/20904 RPT#: [id number] DC DATE: STATUS: ADM IN [facility] [address] [place] [address] END OF REPORT
[2020-02-21] MEDS ORDERED: ALBUTEROL2.5 MG/3 M UPD (10:58)
[2020-02-21] MEDS ORDERED: RACEMIC EPI 2.0.5 ML INH (10:58)
[2020-02-21] MEDS ORDERED: Lovenox INJ SC (10:58)
[2020-02-21] MEDS ORDERED: QUESTRAN PACKET PO (10:59)
[2020-02-21] MEDS ORDERED: FLORAJEN3 CAPS460 MG PO (11:00)
[2020-02-21] MEDS ORDERED: MUCINEX DM ER1 EAC1 PO (11:00)
[2020-02-21] MEDS ORDERED: PROTONIX40 MG PO (11:00)
[2020-02-21] MEDS ORDERED: MULTI-DAY VITAM1 TAB PO (11:00)
[2020-02-21] MEDS ORDERED: TESSALON PERLE100 MG PO (11:00)
[2020-02-21] MEDS ORDERED: FERRLECIT62.5 MG/2 IVPB (11:01)
--- NOTE | 2020-02-21 11:07 | NUR ---
PT WITH BLOODY SPUTUM NOTED. PT WITH INCREASE IN COUGH FROM PREVIOUS SHIFT. COMPLETE GOWN CHANGE. DR CONDE PAGED TO NOTIFY OF PT STATE. WILL CONT TO MONITOR.
--- NOTE | 2020-02-21 11:20 | NUR ---
RESPIRATORY NOTFIED OF NEED FOR PRN TREATMENT. SEE EMAR.
[2020-02-21 11:59] VITALS: BP 152/57
--- NOTE | 2020-02-21 13:00 | NUR ---
Nutrition Follow-up: Pt sleeping soundly at time of visit this AM. Did not wake. Chart reviewed. Noted plans to d/c to rehab. Diet: Cardiac PO intake: 50% of dinner last night No new wt; last wt: 108# (02/04) Labs noted: Na 134, K+ 3.1, Glu 111, Alb 1.5 Meds noted: Protonix, KDur -Encourage PO intake and honor food preferences within diet restrictions. -Offer nutrition supplements. -Need new wt; noted daily wts ordered. -RD following.
--- NOTE | 2020-02-21 13:33 | NUR ---
OT NOTE: PT COMPLETED SUPINE TO SIT WITH MIN/MOD A. PT COMPLETED SIT TO STAND WITH MIN A. PT COMPLETED ADL MOB TO BSC WITH CGA. PT COMPLETED TOILETING TASKS WITH MOD A FOR CLOTHING MANAGEMENT AND MAX A WITH TOILET HYGIENE. PT COMPLETED HAND HYGIENE AND FACE HYGIENE WITH SET UP. [id number] THANK YOU,FRANCES FLOYD
--- NOTE | 2020-02-21 14:34 | NUR ---
Rehab Note- Received voicemail from Gustavo with [facility] with approval of 7 day stay for inpatient acute rehab, Auth #[id number]. Clinical reviewer will be Juve phone #[phone] Ext [phone], Fax #[phone]. Gustavo's contact # is [phone] Ext [phone]. Thank you for this referral! Amaya Jacobson RN CLinical Liaison, [facility]
--- NOTE | 2020-02-21 15:30 | NUR ---
ALL DISCHARGE INSTRUCTIONS COVERED WITH PT. PT IS AAO X 4. ANSWERS ALL QUESTIONS APPROPRIATELY. ALL DISCHARGED PAPERS SIGNED. PIV TO LEFT FA IS SALINE LOCKED AT THIS TIME AND DID NOT DC DUE TO MED ORDERS PER DISCHARGE. ALL PT PERSONAL ITEMS GATHERED AND PLACED IN HOSPITAL BELONGINGS BAG. PT TRANSPORTED FROM ROOM VIA WHEELCHAIR FOR TRANSPORT TO REHAB ROOM 1110. PT DENIES FURTHER QUESTIONS/NEEDS/CONCERNS. PT DAUGHTER INFORMED OF PT TRANSFER.
--- NOTE | 2020-02-21 15:31 | NUR ---
REPORT CALLED TO REHAB NURSE GLADYS SUMMERS. ALL QUESTIONS ANSWERED. NOT FURTHER QUESTIONS AT THIS TIME.
--- NOTE | 2020-02-21 18:08 | MORECARE ---
CASE MANAGEMENT DISCHARGE SUMMARY PATIENT: ERICA ALBERTO UNIT: [id number] ADM DATE: 02/04/20 AGE: 79 : 40 SEX: F ROOM/BED: D.2201 AUTHOR: NGUYEN MOREAU PHYSICIAN: REFERRING PHYSICIAN: REFUGIO FABIAN MD DATE OF SERVICE: 02/21/20 Discharge Plan Patient Name: ERICA ALBERTO Facility: [facility]:[place] : 1940 Planned Disposition: Inpatient Rehab Anticipated Discharge Date: 02/21/20 Discharge Date: 02/21/2020 Expected LOS: 17 Initial Reviewer: [email or web address] Initial Review Date: 02/04/2020 Generated: 02/21/20 7:08 pm Comments DCP- Discharge Planning Updated by [email or web address]: Michelle Webb on 02/21/20 5:[address] Patient Name: ERICA ALBERTO Encounter No: [id number] : 1940 Primary Insurance: [facility] MEDICARE SOLUTIONS Anticipated DC Date: 02-21-2020 Planned Disposition: Inpatient Rehab External Planned Provider: : D/C IMM signed DCP follow-up note: Patient and family in agreement with discharge plan. No changes to plan. Case management will follow and assist as needed. Michelle Webb DCP- Discharge Planning Updated by [email or web address]: Michelle Webb on 02/19/20 7:[address] CM was notified that patient could go to Inpatient Rehab @ [facility] - Dr. Ferreira had agreed to take patient to rehab with chest tube now that she is out of isolation. Dr. Downing stated that he did not want patient going to rehab yet. Dr. Downing stated that she needs to go to in am for chest tube adjustment v/s removal. CM will continue to follow and assist as needed with discharge planning v/s needs. DCP- Discharge Planning Updated by [id number]: Michelle Webb on 02/18/20 4:[address] Patient Name: ERICA ALBERTO Admission Status: ER Accout number: [id number] Admission Date: 02-04-2020 : 1940 Admission Diagnosis:OTHER DISORDERS OF LUNG Attending: REFUGIO FABIAN Current LOS: 14 Anticipated DC Date: Planned Disposition: Home Primary Insurance: [facility] MEDICARE SOLUTIONS Discharge Planning Comments: CM called and spoke with Victorina with [facility] to find out if they have any facilities that have negative pressure rooms. She checked and called CM back and stated that they did not. CM contacted [facility] to check and see if they had any facilities that might be able to take patient. CM will continue to follow and assist as needed with discharge planning / needs. Pipe Production Worker: Michelle Webb DCP- Discharge Planning Updated by [email or web address]: Michelle Webb on 02/18/20 10:[address] [facility] d/t not having a negative pressure room. CM will continue to follow and assist as needed with discharge planning / needs. DCP- Discharge Planning Updated by [email or web address]: Edie Thacker on 02/18/20 6:[address] Patient Name: ERICA ALBERTO Encounter No: [id number] : 1940 Primary Insurance: [facility] MEDICARE SOLUTIONS Anticipated DC Date: Planned Disposition: Home External Planned Provider: : DCP follow-up note: [facility] unable to accept pt. Will send referral to [facility]. CM SPOKE WITH PHIL. Patient and family in agreement with discharge plan. Case management will follow and assist as needed. Edie Thacker DCP- Discharge Planning Updated by [id number]: Julia Reyes on 02/08/20 10:[address] CM SPOKE WITH THE PRIMARY NURSE, BRAD. THE PATIENT IS WEAK AND SHORT OF BREATH AT REST. HE IS EXPECTING HER TO VISIT TODAY. TC TO SPEAK WITH THE PATIENT. NO ANSWER TO HER ROOM NUMBER. HER ANSWERED HER CONTACT PHONE NUMBER. HE IS PLANNING TO VISIT TODAY. PCP- DR MARIAJOSE BUSTILLO- [facility]- [place] ONLY [facility] NURSE FOLLOWS THE PATIENT. THE SPOUSE STATES HE IS NOT CERTAIN WHAT CARE SHE MAY NEED AT DISCHARGE. HE FEELS IT IS TOO EARLY TO TELL. HE STATES SHE HAD DECLINED EVEN PRIOR TO ADMISSION. BRIEFLY DISCUSSED SKILLED AND REHAB CARE. ADVISED CM IS VAVAILABLE DAILY TO ASSIST WITH DISCHARGE PLANNING. CM TO FOLLOW. DCPIA - Discharge Planning Initial Assessment Updated by [email or web address]: Julia Reyes on 02/08/20 11:47 am * Is the patient Alert and Oriented? Yes * How many steps to enter\exit or inside your home? NONE * PCP DR BILLY * Pharmacy [facility] [address] * Preadmission Environment Home with Family * ADLs Partial Dependent * Partial ADLs (Assistance needed) Transfers * Equipment Cane * Other Equipment DENIES ANY ADDITIONAL DME * List name and contact numbers for known caregivers / representatives who currently or will assist patient after discharge: JOSÉ LUIS ALBERTO- SPOUSE- [phone] * Community resources currently utilized None * Please name any agencies selected above. STATES THE PATIENT HAS A NURSE FROM [facility] WHO SEES HER. * Additional services required to return to the preadmission environment? Yes * Can the patient safely return to the preadmission environment? Yes * Has this patient been hospitalized within the prior 30 days at any hospital? No Coverage Notice Reviewer: [id number] Sukhi Webb Notice Issued Date-Time: 02/20/2020 15:30 Notice Type: Patient Choice Letter Notice Delivered To: Patient Relationship to Patient: Self Plodder Operator Name: Delivery Method: HAND - Hand Delivered Mattie Days: Prior Verbal Notification: Recipient Understood Notice: Yes Recipient Signature: Yes Med Rec Note Co-signed by Attending: Coverage Notice Comment: Reviewer: [email or web address] Sukhi Webb Notice Issued Date-Time: 02/21/2020 11:30 Notice Type: IM Discharge Notice Notice Delivered To: Patient Relationship to Patient: Self Plodder Operator Name: Delivery Method: HAND - Hand Delivered Mattie Days: Prior Verbal Notification: Recipient Understood Notice: Yes Recipient Signature: Yes Med Rec Note Co-signed by Attending: Coverage Notice Comment: Last DP export: 02/21/20 8:05 am Patient Name: ERICA ALBERTO Page 53252 at 1808 All edits/amendments must be made on the electronic document DICTATION DATE: 02/21/201807 JUNIOR SYSTEMS ANALYST: MIGUEL ANGEL 02/21/201807 RPT#: [id number] DC DATE:02/21/20 STATUS: DIS IN [facility] [id number] [place] [address] END OF REPORT
== END 2020-02-21 16:10 | DRG 177 ==
LOC: D.ER 14:57 → D.MS 21:15
PROVIDERS: Emergency Medicine; Family Medicine; General Practice; Internal Medicine Nephrology; Internal Medicine Pulmonary Disease; Radiology Diagnostic Radiology; ADMIT Family Medicine; ATTEND Family Medicine
PROC: 0W9B30Z Drainage of Left Pleural Cavity with Drainage Device, Percutaneous Approach (ICD-10-PCS; principal; 2020-02-14 17:00)
PROC: 0BBL3ZX Excision of Left Lung, Percutaneous Approach, Diagnostic (ICD-10-PCS; 2020-02-20)
PROC: 0WPBX0Z Removal of Drainage Device from Left Pleural Cavity, External Approach (ICD-10-PCS; 2020-02-20)
DX: A15.9 Respiratory tuberculosis unspecified (principal); E43 Unspecified severe protein-calorie malnutrition; J86.9 Pyothorax without fistula; E87.1 Hypo-osmolality and hyponatremia; G72.81 Critical illness myopathy; R04.2 Hemoptysis; Z68.1 Body mass index [BMI] 19.9 or less, adult; J69.0 Pneumonitis due to inhalation of food and vomit; J98.4 Other disorders of lung; W19.XXXA Unspecified fall, initial encounter; E87.6 Hypokalemia; I10 Essential (primary) hypertension; E78.5 Hyperlipidemia, unspecified; M19.90 Unspecified osteoarthritis, unspecified site; D50.8 Other iron deficiency anemias; Z03.818 Encounter for observation for suspected exposure to other biological agents ruled out; Z86.73 Personal history of transient ischemic attack (TIA), and cerebral infarction without residual deficits

== ENCOUNTER 2020-02-21 14:54 | Inpatient (IN) | payer MEDICARE ==
[~2020-02-21] VITALS: Ht 160 cm; Wt 49.0 kg
[~2020-02-21 14:54] MED LIST changes: +ALBUTEROL2.5 MG/3 M UPD; +CELEXA20 MG PO; +FERRLECIT62.5 MG/2 IVPB; +FLORAJEN3 CAPS460 MG PO; +LIPITOR10 MG PO; +LISINOPRIL2.5 MG PO; +Lovenox INJ SC; +MUCINEX DM ER1 EAC1 PO; +MULTI-DAY VITAM1 TAB PO; +PROTONIX40 MG PO; +QUESTRAN PACKET PO; +RACEMIC EPI 2.0.5 ML INH; +TESSALON PERLE100 MG PO
[2020-02-21 19:50] VITALS: BMI 19.1
--- NOTE | 2020-02-21 20:07 | NUR ---
ADMITTED TO PHYSICAL REHAB AND SERVICES OF DR JAMES. AWAKE AND ALERT. RESPIRATIONS SLIGHTLY LABORED WITH EXERTION ON ROOM AIR. HX LUNG NEOPLASM. MILD PERIODIC COUGH. ORIENTED X 4. DRESSINGS DRY AND INTACT TO LEFT UPPER BACK CHEST TUBE SITES. RIGHT FOREARM SALINE LOCK INTACT WITH NO SIGNS OF INFILTRATION. SAFETY MEASURES IN PLACE. SEE ADMISSION ASSESSMENT AND HISTORY.
[2020-02-21 21:45] VITALS: BP 158/68
--- NOTE | 2020-02-22 02:08 | NUR ---
CONTINUES SLEEPING WITH RESPIRATIONS UNLABORED. NO DISTRESS NOTED.
--- NOTE | 2020-02-22 04:50 | NUR ---
QUIET HOURS. RESTING IN BED. REMAINS WEAK. INCONTINENT AT TIMES AND INCONTINENT CARE GIVEN.
[2020-02-22 05:37] LABS: BASOPHILS 0.2 % (0-2); EOSINOPHILS 0.6 % (0-7); HEMATOCRIT 30.8 % (36.0-48.0); HEMOGLOBIN 9.3 g/dL (12-16); IMMATURE GRANULOCYTES 0.4 % (0-5); LYMPHOCYTES 8.9 % (15-50); MCH 26.5 pg (26.0-34.0); MCHC 30.2 g/dL (31.0-37.0); MCV 87.7 fL (80.0-100.0); MEAN PLATELET VOLUME 8.6 fL (7.4-10.4); MONOCYTES 7.4 % (2-11); NEUTROPHILS 82.5 % (40-80); PLATELET COUNT 365 10x3/uL (130-400); RBC 3.51 10x6/uL (4.00-5.40); RDW 17.9 % (11.5-14.5); WBC 17.6 10x3/uL (4.8-10.8)
[2020-02-22 05:51] LABS: CALC OSMOLALITY 250 mosm/kg (275-300); CALCIUM 10.2 mg/dL (8.5-10.1); CARBON DIOXIDE 28.2 mmol/L (21.0-32.0); CHLORIDE - SERUM 99 mmol/L (98-107); CREATININE - SERUM 0.6 mg/dL (0.6-1.3); GLUCOSE 105 mg/dL (74-106); SODIUM 126 mmol/L (136-145); UREA NITROGEN 8 mg/dL (7-18); eGFR NON AFRICAN AMERICAN > 90 mL/min (90-120)
[2020-02-22 05:52] LABS: POTASSIUM - SERUM 2.8 mmol/L (3.5-5.1)
[2020-02-22 08:00] VITALS: BP 153/63
--- NOTE | 2020-02-22 08:45 | NUR ---
PT AM MEDS ADMINISTERED. PT DENIES NEEDS. WCTM.
[2020-02-22 10:07] VITALS: BMI 19.1
--- NOTE | 2020-02-22 18:27 | NUR ---
PT RESTING IN BED, DENIES NEEDS. WCTM.
[2020-02-22 19:36] VITALS: BP 153/78
--- NOTE | 2020-02-22 19:45 | NUR ---
AWAKE AND ALERT. RESPIRATIONS UNLABORED. AFEBRILE. HEARTRATE TACHYCARDIC AT 118. DENIES PAIN AT THIS TIME. HAS PERIODIC PRODUCTIVE COUGH WITH BLOOD TINGED SPUTUM.
--- NOTE | 2020-02-22 23:21 | NUR ---
RESTING IN BED WITH RESPIRATIONS UNLABORED. NO DISTRESS NOTED.
--- NOTE | 2020-02-23 01:08 | NUR ---
RESTING IN BED WITH EYES CLOSED AND RESPIRATIONS UNLABORED.
--- NOTE | 2020-02-23 05:19 | NUR ---
LARGE INCONTINENCE OF URINE. GOWN AND BED LINENS CHANGED. ASSISTED TO BATHROOM AND BACK TO BED. MEDICATED FOR C/O BACK PAIN. SEE MAR. CALL LIGHT IN REACH.
[2020-02-23 06:46] LABS: BASOPHILS 0.2 % (0-2); EOSINOPHILS 0.7 % (0-7); HEMATOCRIT 30.2 % (36.0-48.0); IMMATURE GRANULOCYTES 0.4 % (0-5); LYMPHOCYTES 8.7 % (15-50); MCH 26.2 pg (26.0-34.0); MCHC 29.8 g/dL (31.0-37.0); MCV 87.8 fL (80.0-100.0); MEAN PLATELET VOLUME 8.5 fL (7.4-10.4); MONOCYTES 7.1 % (2-11); NEUTROPHILS 82.9 % (40-80); PLATELET COUNT 395 10x3/uL (130-400); RBC 3.44 10x6/uL (4.00-5.40); RDW 18.1 % (11.5-14.5); WBC 16.7 10x3/uL (4.8-10.8)
[2020-02-23 06:57] LABS: CALC OSMOLALITY 259 mosm/kg (275-300); CALCIUM 10.8 mg/dL (8.5-10.1); CARBON DIOXIDE 26.1 mmol/L (21.0-32.0); CHLORIDE - SERUM 100 mmol/L (98-107); CREATININE - SERUM 0.6 mg/dL (0.6-1.3); GLUCOSE 97 mg/dL (74-106); POTASSIUM - SERUM 3.4 mmol/L (3.5-5.1); SODIUM 131 mmol/L (136-145); eGFR NON AFRICAN AMERICAN > 90 mL/min (90-120)
[2020-02-23 06:58] LABS: UREA NITROGEN 5 mg/dL (7-18)
[2020-02-23 08:00] VITALS: BP 160/66
--- NOTE | 2020-02-23 08:42 | NUR ---
PT AM MEDS ADMINISTERED. PT DENIES NEEDS. WCTM.
--- NOTE | 2020-02-23 20:09 | NUR ---
RESTING IN BED WITH RESPIRATIONS UNLABORED. NO ACUTE DISTRESS NOTED. DRESSINGS INTACT TO LEFT UPPER BACK AT PREVIOUS CHEST TUBE SITE.
[2020-02-23 20:33] VITALS: BP 144/75
--- NOTE | 2020-02-24 02:16 | NUR ---
SLEEPING WITH RESPIRATIONS UNLABORED. NO DISTRESS NOTED.
--- NOTE | 2020-02-24 05:18 | NUR ---
QUIET HOURS. NO ACUTE CHANGES IN CONDITION THIS SHIFT. CALL LIGHT IN REACH.
[2020-02-24 07:54] VITALS: BP 149/73
--- NOTE | 2020-02-24 08:00 | NUR ---
PATIENT IS ALERT/WITH SOME CONFUSION NOTED. BED ALARM ON. CALL LIGHT WITHIN REACH. VOICES NO NEEDS AT THIS TIME. WILL CONTINUE WITH PLAN OF CARE
--- NOTE | 2020-02-24 14:14 | NUR ---
PATIENT IN REHAB. WORKING WITH PHYSICAL THERAPIST. DENIES ANY PAIN/DISC AT THIS TIME.
--- NOTE | 2020-02-24 19:10 | NUR ---
BEDSIDE REPORT COMPLETE. PT LYING IN BED EYES CLOSED RESTING. RR EVEN AND UNLABORED. EASILY AROUSED WITH VERBAL STIMULI. DENIES ANY NEEDS OR PAIN. ALERT AND ORIENTED X3. SLOW TO RESPOND BUT ANSWERS ALL ORIENTATION QUESTIONS APPROPRIATELY. LEFT FOREARM IV WITHOUT REDNESS OR SWELLING. DRESSING C/D/I. CALL LIGHT AND WATER WITHIN REACH. BED ALARM ON. CPOC
[2020-02-24 21:10] VITALS: BP 165/71
--- NOTE | 2020-02-25 01:15 | NUR ---
PT LYING IN BED ON RIGHT SIDE EYES CLOSED RESTING. RR EVEN AND UNLABORED. CALL LIGHT WITHIN REACH. BED ALARM ON. CPOC
--- NOTE | 2020-02-25 04:15 | NUR ---
PT LYING IN BED SUPINE EYES CLOSED RESTING. RR EVEN AND UNLABORED. CALL LIGHT AND WATER WITHIN REACH. BED ALARM ON. CPOC
[2020-02-25 09:56] VITALS: BP 132/72
--- NOTE | 2020-02-25 10:24 | NUR ---
PT AM MEDS ADMINISTERED. PT DENIES NEEDS. WCTM.
--- NOTE | 2020-02-25 11:00 | NUR ---
PATIENT ADMITTED TO REHAB FROM ACUTE FLOOR. HER PCP IS DR. BILLY. DME AT HOME IS A CANE. DISCHARGE PLANS ARE FOR HER TO RETUNR TO HER HOME. WILL CONTINUE TO FLOOW WITH PATIENT.
--- NOTE | 2020-02-25 19:00 | NUR ---
BEDSIDE REPORT COMPLETE. PT LYING IN BED AWAKE AND ALERT. DENIES ANY NEEDS OR PAIN. RR EVEN AND UNLABORED. LEFT FOREARM IV WITHOUT REDNESS OR SWELLING. DRESSING C/D/I. CALL LIGHT AND WATER WITHIN REACH. BED ALARM ON. CPOC
[2020-02-25 21:20] VITALS: BP 148/84
--- NOTE | 2020-02-26 00:15 | NUR ---
PT LYING IN BED EYES CLOSED RESTING. RR EVEN AND UNLABORED. BRIEF CLEAN AND DRY. CALL LIGHT AND WATER WITHIN REACH. BED ALARM ON. CPOC
--- NOTE | 2020-02-26 02:30 | NUR ---
ASSISTED PT TO RESTROOM WITH MIN ASSIST. COMPLETE LINEN CHANGE DONE. ASSISTED PT BACK TO BED. CALL LIGHT WITHIN REACH. BED ALARM ON. CPOC
--- NOTE | 2020-02-26 06:40 | NUR ---
PT LYING IN BED EYES CLOSED RESTING. BRIEF CLEAN AND DRY. RR EVEN AND UNLABORED. CALL LIGHT WITHIN REACH. BED ALARM ON. CPOC
[2020-02-26 07:15] LABS: BASOPHILS 0.1 % (0-2); EOSINOPHILS 0.4 % (0-7); HEMATOCRIT 32.4 % (36.0-48.0); HEMOGLOBIN 9.6 g/dL (12-16); IMMATURE GRANULOCYTES 0.5 % (0-5); LYMPHOCYTES 8.3 % (15-50); MCH 26.5 pg (26.0-34.0); MCHC 29.6 g/dL (31.0-37.0); MCV 89.5 fL (80.0-100.0); MEAN PLATELET VOLUME 8.6 fL (7.4-10.4); MONOCYTES 6.8 % (2-11); NEUTROPHILS 83.9 % (40-80); PLATELET COUNT 435 10x3/uL (130-400); RBC 3.62 10x6/uL (4.00-5.40); RDW 18.9 % (11.5-14.5); WBC 18.7 10x3/uL (4.8-10.8)
[2020-02-26 07:42] LABS: CALC OSMOLALITY 267 mosm/kg (275-300); CALCIUM 10.9 mg/dL (8.5-10.1); CARBON DIOXIDE 28.3 mmol/L (21.0-32.0); CHLORIDE - SERUM 100 mmol/L (98-107); CREATININE - SERUM 0.6 mg/dL (0.6-1.3); GLUCOSE 97 mg/dL (74-106); POTASSIUM - SERUM 3.8 mmol/L (3.5-5.1); SODIUM 134 mmol/L (136-145); UREA NITROGEN 12 mg/dL (7-18); eGFR NON AFRICAN AMERICAN > 90 mL/min (90-120)
[2020-02-26 08:32] VITALS: Ht 160 cm; Wt 49.0 kg
[2020-02-26 08:56] VITALS: BP 138/51
--- NOTE | 2020-02-26 11:27 | NUR ---
UPON ARRIVAL THIS MORNING, PATIENT WAS SLEEPING. NO S/S OF DISTRESS. I ASSISTED HER WITH HER BREAKFAST. SHE DIDN'T WANT TO EAT HER SOLID FOOD. SHE ATE HER YOGURT, ENSURE, OJ, AND SOME MILK. DENIES NEEDS AT THIS TIME.
--- NOTE | 2020-02-26 12:56 | NUR ---
PATIENT IS SITTING UP IN BED EATING LUNCH WITH ASSISTANCE. DENIES NEEDS. NO S/S OF DISTRESS. WILL CONTINUE TO MONITOR. MEAGHAN
--- NOTE | 2020-02-26 12:57 | NUR ---
Nutrition follow-up: Diet: Regular PO intake has been poor ~10% average of last 3 meals Labs reviewed Wt: 108# Appetite stimulant ordered today - Megace ES RDN following.
--- NOTE | 2020-02-26 14:12 | NUR ---
PATIENT IS IN THE GYM WITH PHYSICAL THERAPY. PATTIECE GIVEN. SHE ATE SOME APPLESAUCE BEFORE LUNCH ARRIVED, BUT DID NOT WANT ANY OF HER LUNCH. NO S/S OF DISTRESS. DENIES NEEDS. WILL CONTINUE TO MONITOR. MEAGHAN
--- NOTE | 2020-02-26 15:33 | NUR ---
CARE TEAM MEETING: PATIENT IS SLOWLY PROGRESSING IN THERAPY. TENATIVE DISCHARGE DATE IS 03/04/20. WILL CONTINUE TO FOLLOW WITH PATIENT . PATIENT STARTED ON MEGACE FOR HER APPITIETE.
--- NOTE | 2020-02-26 18:15 | NUR ---
IV RESITED TO LEFT FA X 1 STICK. 20G. GOOD BLOOD RETURN. IV IRON INFUSING NOW. PATIENT DOES NOT WANT TO EAT DINNER. I DID GET HER TO EAT SOME PUDDING EARLIER. WILL TRY TO ENCOURAGE EATING. MEAGHAN
[2020-02-26 19:46] VITALS: BP 120/51
--- NOTE | 2020-02-26 19:55 | NUR ---
AWAKE AND ALERT. RESTING IN BED WITH RESPIRATIONS UNLABORED. NOTED WEAK AND FRAIL. NO NEEDS VOICED AT THIS TIME.
--- NOTE | 2020-02-27 01:41 | NUR ---
SLEEPING WITH NO DISTRESS NOTED.
--- NOTE | 2020-02-27 06:20 | NUR ---
QUIET HOURS. NO ACUTE CHANGES IN CONDITION THIS SHIFT. INCONTINENT OF URINE AND BM. BED CLOTHES AND LINENS CHANGED.
--- NOTE | 2020-02-27 08:00 | NUR ---
PATIENT IS ALERT/ORIENT. VERY SOFT SPOKEN AND HARD OF HEARING. SITTING UP IN BED TO EAT BREAKFAST. CALL LIGHT WITHIN REACH. VOICES NO NEEDS. WILL CONTINE WITH PLAN OF CARE
[2020-02-27 08:18] VITALS: BP 135/52
--- NOTE | 2020-02-27 10:10 | NUR ---
PATIENT IN REHAB ROOM. WORKING WITH PHYSICAL THERAPIST. DENIES ANY PAIN/DISC AT THIS TIME.
--- NOTE | 2020-02-27 11:00 | NUR ---
I have reviewed this patient and I concur with the Shift Assessment completed by the Licensed Practical Nurse today this shift.
--- NOTE | 2020-02-27 14:45 | NUR ---
CLINICAL UPDATES FAXED TO SHARON RIVERA , AUTH. #[id number] WITH CONFORMATION RECIEVED
--- NOTE | 2020-02-27 15:36 | NUR ---
PRN PAIN MEDICATION GIVEN FOR ALL OVER GENERAL PAIN.
[2020-02-27 19:31] VITALS: BP 144/65
--- NOTE | 2020-02-27 19:37 | NUR ---
AWAKE AND RESTING IN BED. RESPIRATIONS UNLABORED. GROANS AND NOTED FACIAL GRIMACES WITH TOUCH OF TAKING VITAL SIGNS. CALL LIGHT IN REACH.
--- NOTE | 2020-02-28 01:10 | NUR ---
ASSISTED TO BATHROOM AND ALSO HAD AN INCONTINENCE EPISODE OF URINE. BED CLOTHES, BRIEF AND BED LINENS CHANGED. ASSITED BACK TO BED. GRIMACES AND GROANS WITH PHYSICAL TOUCH AND TRANSFER. ADJUSTED IN BED FOR COMFORT.
--- NOTE | 2020-02-28 04:59 | NUR ---
QUIET HOURS. NO ACUTE CHANGES IN CONDITION THIS SHIFT. CALL LIGHT IN REACH.
[2020-02-28 05:57] LABS: CALC OSMOLALITY 265 mosm/kg (275-300); CALCIUM 11.9 mg/dL (8.5-10.1); CARBON DIOXIDE 29.8 mmol/L (21.0-32.0); CHLORIDE - SERUM 101 mmol/L (98-107); CREATININE - SERUM 0.7 mg/dL (0.6-1.3); GLUCOSE 85 mg/dL (74-106); POTASSIUM - SERUM 4.4 mmol/L (3.5-5.1); SODIUM 133 mmol/L (136-145); UREA NITROGEN 16 mg/dL (7-18); eGFR NON AFRICAN AMERICAN 85 mL/min (90-120)
[2020-02-28 06:24] LABS: HEMATOCRIT 31.7 % (36.0-48.0); HEMOGLOBIN 9.3 g/dL (12-16); MCH 26.6 pg (26.0-34.0); MCHC 29.3 g/dL (31.0-37.0); MCV 90.8 fL (80.0-100.0); MEAN PLATELET VOLUME 8.7 fL (7.4-10.4); PLATELET COUNT 358 10x3/uL (130-400); RBC 3.49 10x6/uL (4.00-5.40); WBC 20.1 10x3/uL (4.8-10.8)
[2020-02-28 08:00] VITALS: BP 114/49
--- NOTE | 2020-02-28 08:00 | NUR ---
PT RESTING IN BED EYES CLOSED CALL LIGHT IN REACH WILL MONITER
[2020-02-28 11:59] LABS: EOSINOPHILS 1 % (0-7); LYMPHOCYTES 10 % (15-50); MONOCYTES 7 % (2-11); NEUTROPHILS 81 % (40-80); PLATELET ESTIMATE NORMAL; ROULEAUX OCC
--- NOTE | 2020-02-28 13:00 | NUR ---
DAUGHTER CALLED ASKING QUESTIONS ABOUT DAUGHTERS CONDITION STATED SHE HAD NOT BEEN CONTACTED BY ANY DRS AND SHE WOULD LIKE TO BE I TOLD HER I WOULD LET DR JAMES KNOW. TRANSFERED HER CALL AT THAT POINT TO BIRD PROFESSOR OF [employer] HISTORY
--- NOTE | 2020-02-28 14:12 | RHP ---
PATIENT: ERICA ALBERTO MEDICAL RECORD: [id number] ACCOUNT: [id number] LOCATION:[facility]1110 : 40 ADMISSION DATE: 02/21/20 REHABILITATION HISTORY AND PHYSICAL EXAMINATION POST ADMISSION PHYSICIAN EXAMINATION ADMITTING DIAGNOSIS: Critical illness myopathy. HISTORY OF PRESENT ILLNESS: The patient is an 80-year-old female patient who presented to the Emergency Room Department on 02/04/2020 with complaints of worsening weakness over the past month with a fall prior to arrival. She had decreased p.o. intake and some morning hemoptysis. She has got a history of TIA and CVA, dyslipidemia, glaucoma and depression. She has got a history of appendectomy and hysterectomy in the past. Pulmonary and cardiovascular surgery was consulted. She was admitted to the hospital for workup of possible TB per pulmonary. The patient had been seen by a lung physician previously in [facility] in the [facility] secondary to a large cavitary lesion at that time, was worried that she could be actively positive for TB, but she was not. The patient had hemoptysis, which was resolved and due to her history of a lesion there it was impossible invasion of her distal left main pulmonary artery and segmental branches and calcified granulomas, felt like this was the cause of her hemoptysis, been receiving OT and PT during her stay. She needs to be monitored closely for telemetry in sinus tachycardia. She is on supplemental O2. Her chest tube has been removed. She is currently on IV Ferrlecit, pain control, monitoring of her lab values, she has got proximal muscle weakness, balance deficits, decreased strength, limited safety awareness, she is at risk for falls. She has cues for equipment, low endurance, unsteady balance, fatigues easily and has inability to care for self. These are all reasons for her not to be discharged home at this time. She lives at home with her , was independent with ADLs and mobility prior to this. She is just using a single point cane. She is currently set up for max assist for ADLs and mod assist for mobility. She and her family would like to return home at her prior level of functioning or possibly better. COMORBIDITIES: Include weakness, hypertension, history of TIA, dyslipidemia, anemia, hyponatremia, hypokalemia, leukocytosis and iron-deficient anemia. PAST MEDICAL HISTORY: Significant for CVA, TIA, glaucoma, hypertension, dyslipidemia, hemoptysis, arthritis. PAST SURGICAL HISTORY: Includes hysterectomy, appendectomy. ALLERGIES: No known drug allergies. CURRENT MEDICATIONS: Include Lovenox 40 mg subQ daily, she is on IV iron daily, she is on Floranex 1 cap daily, she is on multivitamin daily, lisinopril 2.5 mg daily, citalopram 20 mg daily, she is on an electrolyte protocol at this time for replacement of her potassium, she is on guaifenesin 1 tab b.i.d., she is on Xalatan eye drops at bedtime, Tessalon Perles 100 mg t.i.d., Lipitor 10 mg at bedtime, racemic epinephrine as needed for p.r.n. hemoptysis and polyethylene glycol 17 grams in 8 ounces of water daily. HABITS: No alcohol or tobacco use. FAMILY HISTORY: Noncontributory. HISTORY AND PHYSICAL [id number] ERICA ALBERTO SOCIAL HISTORY: The patient hopes to return back home and get back to her prior level of functioning. REVIEW OF SYSTEMS: GENERAL: Does complain of some weakness. HEENT: Denies cold, cough, or congestion. CARDIOVASCULAR: Denies any chest pain. PHYSICAL EXAMINATION: VITAL SIGNS: Stable, afebrile. GENERAL: An elderly female, in no acute distress upon exam. HEENT: Normocephalic and atraumatic. Mucosa moist. NECK: Supple. No lymphadenopathy. LUNGS: Clear in upper [place] with decreased breath sounds in the bases. HEART: Regular rate and rhythm, although she is tachycardic. ABDOMEN: Soft, benign nondistended. Positive bowel sounds times 4. EXTREMITIES: No clubbing, cyanosis or edema. NEUROLOGIC: She does have noted proximal muscle weakness. LABORATORY DATA: Her white count today is 17.6, her H&H are 9 and 30 and her platelet count is noted to be 365. Her sodium is 146, potassium 2.8, BUN and creatinine of 8 and 0.6, and blood sugar is noted to be 105. ASSESSMENT: This is an 80-year-old female patient admitted to rehab with a working diagnosis of critical illness myopathy. The patient has potential to make improvement. We instituted the following multidisciplinary therapies including, but not limited to physical, occupational, respiratory, speech, nutritional services, prosthetics and orthotics. Given her complex medical condition and risks for more complications, rehabilitation services cannot be provided at a low level of care such as skilled nurse facility. PLAN: 1. Admit to [facility] for inpatient therapy to include the following disciplines: A. Physical therapy to improve gait, all transfer skills and bed mobility to a modified independent level. B. Occupational therapy to improve activities of daily living. C. Case management to assist with discharge planning and placement options. D. Nutrition to assist with nutritional needs. E. Rehabilitation nursing to assist in monitoring the patient's underlying medical conditions and to assist with any type of bowel or bladder management. 2. The patient's current medication and medical care will be continued. 3. The patient will be placed on standard fall precautions. 4. The patient's estimated length of stay is approximately 7-10 days. 5. We will discuss the patient's care team staff meeting this week. We will go ahead and continue with potassium replacement, watch her tachycardia and white count closely and treat appropriately. TRANSINT:[id number] Voice Confirmation ID: [id number] DOCUMENT ID: [id number] MATEO notes whether there has been none or any medical/functional change since admission: - No change since preadmission screen. HISTORY AND PHYSICAL [id number] ERICA ALBERTO attests patient continues to be appropriate for IRF: - Continues to be appropriate. SWATHI JAMES MD at 1412 CC: [id number] DICTATION DATE: 02/22/20 1134 JOURNEYMAN WELDER: 02/22/20 1256 ADM IN [facility] [address] [place] [address]
--- NOTE | 2020-02-28 17:45 | NUR ---
PT RESTING IN BED WITH EYES OPEN CALL LIGHT IN REACH WILL MONITER
--- NOTE | 2020-02-28 18:50 | NUR ---
BEDSIDE REPORT COMPLETE. PT LYING IN BED EYES CLOSED RESTING COMFORTABLY. HOB ELEVATED. EASILY AROUSED WITH VERBAL STIMULI. PT ANSWERS WITH YES AND NO. VS STABLE. LUNG SOUNDS DIMINISHED BILATERALLY. RR EVEN AND UNLABORED. HR 116 TACHYCARDIC AUSCULTATION. BOWEL SOUNDS PRESENT AND ACTIVE X4. LEFT AC IV WITHOUT REDNESS OR SWELLING. DRESSING C/D/I. PT IS NPO. BRIEF CLEAN AND DRY. CALL LIGHT WITHIN REACH. BED ALARM ON. CPOC
[2020-02-28 20:46] VITALS: BP 150/67
--- NOTE | 2020-02-28 23:22 | NUR ---
PT LYING IN BED EYES CLOSED RESTING COMFORTABLY. HOB ELEVATED. RR EVEN AND UNLABORED. CALL LIGHT WITHIN REACH. BED ALARM ON. CPOC
--- NOTE | 2020-02-29 03:27 | NUR ---
PT LYING IN BED EYES CLOSED RESTING COMFORTABLY. HOB ELEVATED. RR EVEN AND UNLABORED. CALL LIGHT WITHIN REACH. BED ALARM ON. CPOC
[2020-02-29 08:00] VITALS: BP 153/64
--- NOTE | 2020-02-29 08:16 | NUR ---
PT RESTING IN BED, EYES CLOSED, RR ARE EVEN AND UNLABORED. WCTM.
--- NOTE | 2020-02-29 14:01 | NUR ---
IV FLUIDS STARTED. ORAL CARE PROVIDED. PAOLA.
--- NOTE | 2020-02-29 18:55 | NUR ---
BEDSIDE REPORT COMPLETE. PT LYING IN BED EYES CLOSED RESTING COMFORTABLY. RR EVEN AND UNLABORED. CONTINUES ON RA 96% SAT. LEFT AC IV INFUSING D5 1/2NS @ 30ML/HR. BED LINENS CLEAN AND DRY. PT REMAINS NPO PER ORDER. CALL LIGHT WITHIN REACH. BED ALARM ON. CPOC
[2020-02-29 19:42] VITALS: BP 148/60
--- NOTE | 2020-02-29 22:45 | NUR ---
PT LYING IN BED EYES CLOSED RESTING COMFORTABLY. BED LINEN CLEAN AND DRY. RR EVEN AND UNLABORED. CALL LIGHT AND WATER WITHIN REACH. BED ALARM ON. CPOC
--- NOTE | 2020-03-01 02:54 | NUR ---
PT LYING IN BED SUPINE EYES CLOSED RESTING COMFORTABLY. RR EVEN AND UNLABORED. CALL LIGHT WITHIN REACH. BED ALARM ON. CPOC
[2020-03-01 05:43] VITALS: BP 147/57
--- NOTE | 2020-03-01 05:52 | NUR ---
PT SPIKED FEVER 101.8 O2 SAT 88% PLACED PT ON 2L VIA NC O2 SAT NOW 92%. VS BP 147/57 HR 130 RR 24. PT DENIES ANY PAIN. TYLENOL SUPP 650MG ORDERED PER DR. JAMES. PT DOES NOT APPEAR TO BE IN ANY ACUTE DISTRESS. RESTING COMFORTABLY. HOB ELEVATED 30 DEGREES. CALL LIGHT WITHIN REACH. CPOC
--- NOTE | 2020-03-01 07:00 | NUR ---
POSITIONED ON BACK WITH EYES CLOSED. RESP EVEN AND UNLABORED WITH 02 ON PER NC AT 2L/M. IV PATENT TO LAC AND INFUSING WELL WITHOUT REDNESS OR EDEMA AT SITE. CALL LIGHT IN REACH, SIDERAILS UP X 2 AND BED IN LOW LOCKED POSITION. WILL CONTINUE POC.
--- NOTE | 2020-03-01 07:45 | NUR ---
UPON ENTERING ROOM, PT WAS NOTED WITH NO RESPIRATIONS. CODE WAS CALLED, DAUGHTER CONTACTED AND REQUESTED PT BE DNR. CODE WAS CALLED AT 0805 WITH ASYSTOLE PATTERN. DAUGHTER TALKED WITH DR. KIM.
--- NOTE | 2020-03-01 08:30 | NUR ---
CALL PUT IN TO DR. JAMES AND MESSAGE LEFT ON VOICE MAIL.
--- NOTE | 2020-03-01 11:05 | NUR ---
[facility] CONTACTED FOR BODY TO BE PICKED UP.
--- NOTE | 2020-03-01 12:30 | NUR ---
HOME HERE TO REMOVE BODY. FORMS SIGNED AND COPIES GIVEN.
--- NOTE | 2020-03-02 09:53 | NUR ---
NOTE SENT TO INSURANCE, SHARON RIVERA AT , AUTH. # [id number] OF PATIENT PASSING.
== END 2020-03-01 12:35 | DRG 91 ==
LOC: D.REHAB 14:54
PROVIDERS: ADMIT Emergency Medicine; ATTEND Emergency Medicine
PROC: 5A12012 Performance of Cardiac Output, Single, Manual (ICD-10-PCS; principal; 2020-03-01)
DX: G72.81 Critical illness myopathy (principal); J18.9 Pneumonia, unspecified organism; E87.1 Hypo-osmolality and hyponatremia; C34.32 Malignant neoplasm of lower lobe, left bronchus or lung; C79.51 Secondary malignant neoplasm of bone; E46 Unspecified protein-calorie malnutrition; Z68.1 Body mass index [BMI] 19.9 or less, adult; E78.5 Hyperlipidemia, unspecified; H40.9 Unspecified glaucoma; F32.9 Major depressive disorder, single episode, unspecified; R00.0 Tachycardia, unspecified; I10 Essential (primary) hypertension; R53.1 Weakness; E87.6 Hypokalemia; D50.9 Iron deficiency anemia, unspecified; J84.10 Pulmonary fibrosis, unspecified; M19.90 Unspecified osteoarthritis, unspecified site; F80.2 Mixed receptive-expressive language disorder; Z91.81 History of falling; Z86.73 Personal history of transient ischemic attack (TIA), and cerebral infarction without residual deficits